=== PATIENT | female | born 1970 | race American Indian/Alaskan Native ===

== ENCOUNTER 2021-09-17 22:36 | Inpatient (IN) | payer MEDICAID ==
[~2021-09-17] VITALS: Ht 165.1 cm; Wt 62.0 kg
[~2021-09-17 22:36] MED LIST: ACET1TAB12 PO; CYCL-1 PO
[2021-09-17 23:24] LABS: BASOPHILS % (AUTO) 0.4 % (0-1); EOSINOPHILS # (AUTO) 0.1 X10'3 (0-0.9); EOSINOPHILS % (AUTO) 0.6 % (0-6); HEMOGLOBIN 10.9 g/dl (12.0-16.0); LYMPHOCYTES # (AUTO) 1.1 X10'3 (1.1-4.8); LYMPHOCYTES % (AUTO) 10.3 % (21-51); MEAN CORPUSCULAR HEMOGLOBIN 26.7 PG (27.0-31.0); MEAN CORPUSCULAR HGB CONC 32.2 g/dL (33.0-36.5); MEAN PLATELET VOLUME 10.3 FL (7.4-10.4); MONOCYTES # (AUTO) 0.7 X10'3 (0-0.9); MONOCYTES % (AUTO) 6.4 % (2-12); NEUTROPHILS # (AUTO) 9.1 X10'3 (1.8-7.7); NEUTROPHILS % (AUTO) 82.3 % (42-75); PLATELET COUNT 177 X10'3 (140-440); RED CELL DISTRIBUTION WIDTH 15.6 % (11.5-14.5)
[2021-09-17] MEDS ORDERED: normal saline 1000ml 1,000 ML IV ONE (23:30)
[2021-09-17 23:43] LABS: ALANINE AMINOTRANSFERASE 25 U/L (12-78); ALBUMIN 3.7 G/DL (3.4-5.0); ALBUMIN/GLOBULIN RATIO 0.8 (1.1-1.5); ALKALINE PHOSPHATASE 106 IU/L (46-116); ANION GAP 8 (8-16); ASPARTATE AMINO TRANSFERASE 24 U/L (10-37); BILIRUBIN,DIRECT 0.2 MG/DL (0-0.3); BILIRUBIN,TOTAL 0.4 MG/DL (0.1-1.0); BLOOD UREA NITROGEN 16 MG/DL (7-18); BUN/CREATININE RATIO 11.1 (6.6-38.0); CALCIUM 9.2 MG/DL (8.5-10.1); CHLORIDE 105 MMOL/L (99-107); CREATININE 1.44 MG/DL (0.40-0.90); GLUCOSE 151 MG/DL (70-104); LIPASE 109 U/L (73-393); SODIUM 139 MMOL/L (135-145); TOTAL CARBON DIOXIDE 25.7 MMOL/L (24-32); TOTAL PROTEIN 8.3 G/DL (6.4-8.2); eGFR 38 ML/MIN
[2021-09-18] MEDS ORDERED: iohexol 300mg/ml 100ml inj. ONE ×3 (00:11→17:43)
[2021-09-18] MEDS ORDERED: potassium Cl 20 mEq SR tablet PO STA (00:39)
[2021-09-18 01:19] LABS: APTT 23 SECONDS (22-32)
[2021-09-18 02:11] LABS: CLARITY,URINE SLIGHTLY CLOUDY (Clear); COLOR,URINE YELLOW (Yellow); GLUCOSE, URINE NEGATIVE (Neg); KETONES,URINE NEGATIVE (Neg); LEUKOCYTE ESTERASE ,URINE NEGATIVE (Neg); NITRITES, URINE NEGATIVE (Neg); OCCULT BLOOD,URINE NEGATIVE (Neg); PROTEIN,URINE TRACE mg/dl (Neg); URINE HCG NEGATIVE (NEG); UROBILINOGEN,URINE 0.2 E.U/dL (0.2-1.0)
[2021-09-18 02:14] LABS: UA COLLECTION TYPE CLN CATCH MIDSTREAM
[2021-09-18 02:19] LABS: BACTERIA,URINE NONE SEEN /HPF (Neg); HYALINE CASTS 0-3 /LPF (NEGATIVE); SQUAMOUS EPITHELIAL CELL,UR FEW /LPF (FEW); TRANSITIONAL EPI CELLS,URINE FEW /HPF
[2021-09-18 02:20] LABS: RBC,URINE 0-2 /HPF (0-2); WBC,URINE 0-4 /HPF (0-4)
[2021-09-18] MEDS ORDERED: LIDOcaine 1% 30ml preserv. free vial ONE (02:33)
[2021-09-18] MEDS ORDERED: midazolam 1 mg/ML 2ml injection ONE (02:33)
[2021-09-18] MEDS ORDERED: fentaNYL/PF 50MCG/1 ML 2ML syringe ONE (02:33)
[2021-09-18] MEDS ORDERED: heparin 1,000 UNITS/NS 500ml 500 ML ONE (02:34)
[2021-09-18] MEDS ORDERED: ondansetron/PF 4mg/2ml inj ONE (03:50)
--- NOTE | 2021-09-18 04:51 | NUR ---
PT BACK FROM [facility] SUITE, TO LIE FLAT FOR 6 HOURS, UNTIL 1030. NO ACTIVE BLEEDING FOUND, PER REPORT FROM [facility] RN. PT DROWSY, RIGHT GROIN DRESSING IS DRY AND INTACT.
--- NOTE | 2021-09-18 06:30 | NUR ---
first contact with pt. found supine in bed s/p stent placement. will be supine until 1030. pt denies pain, connected to all monitors. nad.
[2021-09-18] MEDS ORDERED: ondansetron/PF 4mg/2ml inj IV PRN (10:05)
[2021-09-18] MEDS ORDERED: LIDOcaine 2% 10ml TOPICAL JELLY (Urojet) TP ONE (10:05)
[2021-09-18] MEDS ORDERED: potassium Cl 20 mEq SR tablet PO PRN (10:05)
[2021-09-18] MEDS ORDERED: magnesium hydroxide 30ml (MOM) UD suspension PO PRN (10:05)
[2021-09-18] MEDS ORDERED: acetaminophen 325mg tablet PO PRN ×2 (10:05)
[2021-09-18] MEDS ORDERED: morphine 4 MG/ML inj SYRINge IV PRN (10:05)
[2021-09-18] MEDS: morphine 2 MG/ML inj. syringe IV PRN ×2 (10:47→19:30)
[2021-09-18] MEDS: normal saline 1000ml 1,000 ML IV SCH ×2 (10:48→19:31)
--- NOTE | 2021-09-18 11:00 | NUR ---
DR BLAS CALLED REGARDING PT'S ICU STATUS, PT WAS BEEN DOWN GRADED TO PCU, NURSING SUPP NOTIFIED
[2021-09-18 12:51] LABS: BASOPHILS % (AUTO) 0.7 % (0-1); EOSINOPHILS % (AUTO) 0.7 % (0-6); HEMATOCRIT 23.7 % (35.0-45.0); HEMOGLOBIN 7.8 g/dl (12.0-16.0); LYMPHOCYTES # (AUTO) 1.2 X10'3 (1.1-4.8); LYMPHOCYTES % (AUTO) 19.9 % (21-51); MEAN CORPUSCULAR HEMOGLOBIN 27.5 PG (27.0-31.0); MEAN CORPUSCULAR HGB CONC 32.7 g/dL (33.0-36.5); MEAN PLATELET VOLUME 10.1 FL (7.4-10.4); MONOCYTES # (AUTO) 0.6 X10'3 (0-0.9); MONOCYTES % (AUTO) 10.5 % (2-12); NEUTROPHILS # (AUTO) 4.2 X10'3 (1.8-7.7); NEUTROPHILS % (AUTO) 68.2 % (42-75); PLATELET COUNT 111 X10'3 (140-440); RED BLOOD COUNT 2.83 X10'6 (4.20-5.60); RED CELL DISTRIBUTION WIDTH 15.8 % (11.5-14.5); WHITE BLOOD COUNT 6.2 X10'3 (4.5-11.0)
[2021-09-18] MEDS ORDERED: NO HOME MEDS (13:35)
--- NOTE | 2021-09-18 15:26 | NUR ---
telephone report to sparkle porter.
[2021-09-18 15:34] LABS: HEMATOCRIT 23.9 % (35.0-45.0); HEMOGLOBIN 7.8 g/dl (12.0-16.0); MEAN CORPUSCULAR HEMOGLOBIN 27.4 PG (27.0-31.0); MEAN CORPUSCULAR HGB CONC 32.6 g/dL (33.0-36.5); MEAN PLATELET VOLUME 9.1 FL (7.4-10.4); PLATELET COUNT 104 X10'3 (140-440); RED BLOOD COUNT 2.84 X10'6 (4.20-5.60); RED CELL DISTRIBUTION WIDTH 15.7 % (11.5-14.5); WHITE BLOOD COUNT 6.6 X10'3 (4.5-11.0)
[2021-09-18 15:40] VITALS: BP 161/74
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
[2021-09-18] MEDS ORDERED: COVID-19 VACC, MRNA(PFIZER)/PF--BNT162b2 syringe IMVAC ONE (17:30)
[2021-09-18 18:00] VITALS: BP 155/71
--- NOTE | 2021-09-18 18:15 | NUR ---
Problems reprioritized. Patient report given, questions answered & plan of care reviewed with GIL CARRASQUILLO.
--- NOTE | 2021-09-18 18:45 | NUR ---
Problems reprioritized. Patient report given, questions answered & plan of care reviewed with GIL CARRASQUILLO .
[2021-09-18 21:23] LABS: HEMATOCRIT 22.6 % (35.0-45.0); HEMOGLOBIN 7.2 g/dl (12.0-16.0); MEAN CORPUSCULAR HEMOGLOBIN 26.7 PG (27.0-31.0); MEAN CORPUSCULAR HGB CONC 32.1 g/dL (33.0-36.5); PLATELET COUNT 98 X10'3 (140-440); RED BLOOD COUNT 2.72 X10'6 (4.20-5.60); RED CELL DISTRIBUTION WIDTH 15.5 % (11.5-14.5); WHITE BLOOD COUNT 6.3 X10'3 (4.5-11.0)
[2021-09-19] VITALS (11 sets, daily range): BP systolic 116–167; BP diastolic 42–71
[2021-09-19 03:52] LABS: BASOPHILS % (AUTO) 0.9 % (0-1); EOSINOPHILS # (AUTO) 0.1 X10'3 (0-0.9); EOSINOPHILS % (AUTO) 1.8 % (0-6); HEMATOCRIT 23.1 % (35.0-45.0); HEMOGLOBIN 7.5 g/dl (12.0-16.0); LYMPHOCYTES # (AUTO) 1.2 X10'3 (1.1-4.8); LYMPHOCYTES % (AUTO) 22.4 % (21-51); MEAN CORPUSCULAR HEMOGLOBIN 27.1 PG (27.0-31.0); MEAN CORPUSCULAR HGB CONC 32.4 g/dL (33.0-36.5); MEAN CORPUSCULAR VOLUME 83.7 FL (78-98); MEAN PLATELET VOLUME 10.7 FL (7.4-10.4); MONOCYTES # (AUTO) 0.5 X10'3 (0-0.9); MONOCYTES % (AUTO) 8.5 % (2-12); NEUTROPHILS # (AUTO) 3.7 X10'3 (1.8-7.7); NEUTROPHILS % (AUTO) 66.4 % (42-75); PLATELET COUNT 95 X10'3 (140-440); RED BLOOD COUNT 2.77 X10'6 (4.20-5.60); RED CELL DISTRIBUTION WIDTH 15.3 % (11.5-14.5); WHITE BLOOD COUNT 5.5 X10'3 (4.5-11.0)
[2021-09-19 04:19] LABS: ALANINE AMINOTRANSFERASE 21 U/L (12-78); ALBUMIN 2.9 G/DL (3.4-5.0); ALKALINE PHOSPHATASE 88 IU/L (46-116); ANION GAP 9 (8-16); ASPARTATE AMINO TRANSFERASE 20 U/L (10-37); BILIRUBIN,TOTAL 0.5 MG/DL (0.1-1.0); BLOOD UREA NITROGEN 16 MG/DL (7-18); BUN/CREATININE RATIO 16.3 (6.6-38.0); CALCIUM 8.2 MG/DL (8.5-10.1); CHLORIDE 109 MMOL/L (99-107); CREATININE 0.98 MG/DL (0.40-0.90); GLUCOSE 73 MG/DL (70-104); MAGNESIUM 1.7 MG/DL (1.5-2.4); POTASSIUM 3.6 MMOL/L (3.5-5.1); SODIUM 142 MMOL/L (135-145); TOTAL PROTEIN 5.8 G/DL (6.4-8.2); eGFR 60 ML/MIN
[2021-09-19 04:52] LABS: LARGE PLATELETS FEW; PLATELET ESTIMATE DECREASED
[2021-09-19] MEDS: normal saline 1000ml 1,000 ML IV SCH ×2 (06:20→19:58)
[2021-09-19] MEDS: K and/or MAG REPLACEMENT MC SCH (08:00)
[2021-09-19 09:53] LABS: HEMATOCRIT 24.5 % (35.0-45.0); MEAN CORPUSCULAR HEMOGLOBIN 27.3 PG (27.0-31.0); MEAN CORPUSCULAR HGB CONC 32.5 g/dL (33.0-36.5); MEAN PLATELET VOLUME 9.4 FL (7.4-10.4); PLATELET COUNT 90 X10'3 (140-440); RED BLOOD COUNT 2.92 X10'6 (4.20-5.60); RED CELL DISTRIBUTION WIDTH 15.5 % (11.5-14.5); WHITE BLOOD COUNT 6.2 X10'3 (4.5-11.0)
--- NOTE | 2021-09-19 10:36 | NUR ---
Malnutrition Consult: Noted pt stated wt loss of 24-33 lbs per RN malnutrition screen. Pt scaled wt of 52.27 kg appropriate for height; no hx of wt loss in EMR. Current clear liquid diet, pending PO trends. Pt WD/WN per MD note, w/ general/normal strength, and no edema noted. Pt does not meet minimum criteria for malnutrition at this time. Will continue to monitor. Addendum: 09/19/21 at 1037 by Amador De La Garza - Paula Floyd RD Amended: Links added. Addendum: 09/19/21 at [address] I have reviewed assessment by environmental engineering intern
--- NOTE | 2021-09-19 11:02 | NUR ---
PAGER ID: [phone] MESSAGE: [id number] Nathalia Wilkerson- Patient is in and out of accelerated junctional rhythm. Vika [phone]
--- NOTE | 2021-09-19 11:23 | NUR ---
PAGER ID: [phone] MESSAGE: [id number] Nathalia Wilkerson- Patient C/O sudden increase in abdominal pain. Vika [phone] Addendum: 09/19/21 at 1139 by Vika Redd RN Dr. Aldana called back. Order placed for CT abdomen
[2021-09-19] MEDS: morphine 2 MG/ML inj. syringe IV PRN ×2 (11:28→20:36)
[2021-09-19 15:42] LABS: BASOPHILS % (AUTO) 0.2 % (0-1); EOSINOPHILS % (AUTO) 0.1 % (0-6); HEMATOCRIT 24.8 % (35.0-45.0); HEMOGLOBIN 8.3 g/dl (12.0-16.0); LYMPHOCYTES # (AUTO) 0.1 X10'3 (1.1-4.8); LYMPHOCYTES % (AUTO) 2.3 % (21-51); MEAN CORPUSCULAR HEMOGLOBIN 27.7 PG (27.0-31.0); MEAN CORPUSCULAR HGB CONC 33.3 g/dL (33.0-36.5); MEAN CORPUSCULAR VOLUME 83.3 FL (78-98); MEAN PLATELET VOLUME 10.2 FL (7.4-10.4); MONOCYTES # (AUTO) 0.1 X10'3 (0-0.9); MONOCYTES % (AUTO) 0.9 % (2-12); NEUTROPHILS # (AUTO) 6.2 X10'3 (1.8-7.7); NEUTROPHILS % (AUTO) 96.5 % (42-75); PLATELET COUNT 67 X10'3 (140-440); RED BLOOD COUNT 2.98 X10'6 (4.20-5.60); RED CELL DISTRIBUTION WIDTH 15.1 % (11.5-14.5); WHITE BLOOD COUNT 6.4 X10'3 (4.5-11.0)
[2021-09-19] MEDS ORDERED: COVID-19 VACC, MRNA(PFIZER)/PF--BNT162b2 syringe IMVAC ONE (15:50)
[2021-09-19] MEDS ORDERED: FLU VACC QS2021-22(6MOS UP)/PF 60 MCG/0.5 ML SYRINGE IM ONE (17:25)
--- NOTE | 2021-09-19 18:00 | NUR ---
Problems reprioritized. Patient report given, questions answered & plan of care reviewed with Evie RN.
[2021-09-19 19:27] LABS: PLATELET ESTIMATE DECREASED; TOTAL CELLS COUNTED 100
[2021-09-19 21:02] LABS: HEMATOCRIT 22.9 % (35.0-45.0); HEMOGLOBIN 7.5 g/dl (12.0-16.0); MEAN CORPUSCULAR HEMOGLOBIN 26.7 PG (27.0-31.0); MEAN CORPUSCULAR HGB CONC 32.7 g/dL (33.0-36.5); MEAN CORPUSCULAR VOLUME 81.9 FL (78-98); MEAN PLATELET VOLUME 9.5 FL (7.4-10.4); PLATELET COUNT 76 X10'3 (140-440); RED CELL DISTRIBUTION WIDTH 14.9 % (11.5-14.5); WHITE BLOOD COUNT 17.3 X10'3 (4.5-11.0)
[2021-09-20] VITALS (25 sets, daily range): BP systolic 106–204; BP diastolic 61–104
[2021-09-20] MEDS: diatr meglu/diatrizoate 30ml oral sol.-(3 dose) bottle PO SCH ×3 (00:15→09:17)
[2021-09-20] MEDS: morphine 2 MG/ML inj. syringe IV PRN (00:57)
[2021-09-20 06:33] LABS: MEAN CORPUSCULAR HGB CONC 32.6 g/dL (33.0-36.5); MEAN CORPUSCULAR VOLUME 82.8 FL (78-98); MEAN PLATELET VOLUME 10.7 FL (7.4-10.4); PLATELET COUNT 77 X10'3 (140-440); RED BLOOD COUNT 2.52 X10'6 (4.20-5.60); RED CELL DISTRIBUTION WIDTH 15.2 % (11.5-14.5)
[2021-09-20 06:46] LABS: MAGNESIUM 1.4 MG/DL (1.5-2.4); POTASSIUM 3.4 MMOL/L (3.5-5.1)
[2021-09-20 06:48] LABS: HEMATOCRIT 20.8 % (35.0-45.0); HEMOGLOBIN 6.8 g/dl (12.0-16.0)
--- NOTE | 2021-09-20 07:07 | NUR ---
Page to Dr. Stovall Message: [id number] Michael- H&H 6.8. Vika [phone]
[2021-09-20] MEDS ORDERED: iohexol 300mg/ml 100ml inj. ONE (07:29)
[2021-09-20] MEDS: K and/or MAG REPLACEMENT MC SCH (08:00)
[2021-09-20] MEDS: normal saline 1000ml 1,000 ML IV SCH ×2 (09:00→20:01)
--- NOTE | 2021-09-20 09:23 | NUR ---
Page to Dr. Stovall Message: [id number] Bonnie Wilkerson&Cydney is 6.8 / 20.8. Vika [phone] Addendum: 09/20/21 at 0993 by Vika Redd RN Order placed for 1 unit PRBC
[2021-09-20 09:27] LABS: MEAN CORPUSCULAR HEMOGLOBIN 26.8 PG (27.0-31.0); MEAN CORPUSCULAR HGB CONC 32.4 g/dL (33.0-36.5); MEAN CORPUSCULAR VOLUME 82.7 FL (78-98); MEAN PLATELET VOLUME 9.6 FL (7.4-10.4); PLATELET COUNT 70 X10'3 (140-440); RED BLOOD COUNT 2.52 X10'6 (4.20-5.60); RED CELL DISTRIBUTION WIDTH 15.3 % (11.5-14.5); WHITE BLOOD COUNT 12.2 X10'3 (4.5-11.0)
[2021-09-20 09:35] LABS: HEMATOCRIT 20.8 % (35.0-45.0); HEMOGLOBIN 6.8 g/dl (12.0-16.0)
--- NOTE | 2021-09-20 11:27 | NUR ---
Message: [id number] KELLEY. [facility] CALLED. REPORT IS IN THE COMPUTER. THEY ARE VERY CONCERNED WITH THE FINDINGS. LEIGH MORALES
[2021-09-20] MEDS ORDERED: heparin 10,000 units/1 ML INJ ONE (12:39)
[2021-09-20] MEDS ORDERED: ceFOXitin 2GM-NS 100mL ADDvant 100 ML IV ONE (12:45)
[2021-09-20] MEDS ORDERED: fentaNYL/PF 50MCG/1 ML 2ML syringe ONE (12:48)
[2021-09-20] MEDS ORDERED: midazolam 1 mg/ML 2ml injection ONE (12:49)
--- NOTE | 2021-09-20 12:51 | NUR ---
Gave report to air launch weapons technician Terry
[2021-09-20] MEDS ORDERED: NORepinephrine 8 MG in NS 250 ML BAG (32 mcg/ml) IV ONE (12:52)
[2021-09-20] MEDS ORDERED: albumin (Human) 5% 250ml BOTTLE IV ONE (12:52)
[2021-09-20] MEDS ORDERED: sevoflurane 250ml liquid IH ONE (12:52)
[2021-09-20] MEDS ORDERED: famotidine/PF 10 mg/ml inj IV ONE (12:59)
[2021-09-20] MEDS ORDERED: rocuronium 10mg/ml inj IV ONE ×2 (13:28)
[2021-09-20] MEDS ORDERED: propofol inj 20 ML IV ONE (13:28)
[2021-09-20] MEDS ORDERED: LIDOcaine 2% (20mg/ml) 5ml vial ONE (13:28)
[2021-09-20] MEDS ORDERED: LIDOcaine 1%/PF 5ML 10 MG/ML VIAL ONE (13:28)
[2021-09-20] MEDS ORDERED: ceFOXitin 1000 MG inj ONE ×2 (13:37)
[2021-09-20] MEDS ORDERED: fentaNYL/PF 50MCG/1 ML 2ML syringe IV PRN (14:00)
[2021-09-20] MEDS ORDERED: midazolam 1 mg/ML 2ml injection IV ONE (14:00)
[2021-09-20] MEDS ORDERED: midazolam 100mg in NS 100ml 100 ML IV PRN (14:00)
[2021-09-20] MEDS ORDERED: fentaNYL /PF 50mcg/ml 5ml ampule ONE (14:21)
[2021-09-20] MEDS ORDERED: ondansetron/PF 4mg/2ml inj ONE (15:00)
[2021-09-20] MEDS ORDERED: dexamethasone sod phosphate 4mg/ml inj. ONE (15:00)
--- NOTE | 2021-09-20 15:24 | NUR ---
Received from OR via BED ON VENT, BAGGED BY DR STAHL, and report given BY DR STAHL AND LUMBER PRESS OPERATOR. PT SEDATED, RT PLACED ON VENT. MIDLINE ABDOMEN W/ISLAND DRSG INTACT, SMALL AMT OF BLOODY DRAINAGE NOTED. STEPHANIE TO BULB SUCTION, SMALL OF SANGUINOUS DRAINAGE IN BULB. EMERY CATHETER TO GRAVITY DRAINAGE, RIGHT NARE NGT TO LCS W/BROWN/SEROUS DRAINAGE. Addendum: 09/20/21 at 1720 by Jaki Singh RN Amended: Links added.
[2021-09-20] MEDS ORDERED: hydrALAZINE 20mg/ml inj. IV PRN (15:30)
[2021-09-20] MEDS ORDERED: labetalol 20mg/4ml (5mg/ml) syringe IV ONE (15:44)
[2021-09-20] MEDS: labetalol 5mg/ml 20ml inj. IV PRN ×2 (15:46→16:02)
--- NOTE | 2021-09-20 15:46 | NUR ---
Problems reprioritized. Patient report given, questions answered & plan of care reviewed with Ava CARRASQUILLO.
[2021-09-20 16:02] LABS: ABG OXYGEN SATURATION 99.4 % (94-97); ABG PO2 (T) 382.4 mmHg (75.0-100.0); FCOHb 0.3 % (0.0-3.9); FMetHb 0.4 % (0.0-1.5); FO2Hb 98.7 % (94-97); RESPIRATORY RATE 12 b/min; TIDAL VOLUME 450 mL; TOTAL HEMOGLOBIN 9.9 G/dl (12.0-16.0)
[2021-09-20] MEDS: FENTANYL-0.9 % NACL/PF 100 ML IV PRN (16:06)
[2021-09-20 16:13] LABS: HEMATOCRIT 28.4 % (35.0-45.0); HEMOGLOBIN 9.3 g/dl (12.0-16.0); MEAN CORPUSCULAR HEMOGLOBIN 27.5 PG (27.0-31.0); MEAN CORPUSCULAR HGB CONC 32.9 g/dL (33.0-36.5); MEAN CORPUSCULAR VOLUME 83.7 FL (78-98); MEAN PLATELET VOLUME 10.1 FL (7.4-10.4); PLATELET COUNT 84 X10'3 (140-440); RED BLOOD COUNT 3.39 X10'6 (4.20-5.60); WHITE BLOOD COUNT 11.1 X10'3 (4.5-11.0)
[2021-09-20] MEDS ORDERED: haemoph B poly conj-tet tox/PF 10mcg/0.5ml vial IMVAC ONE (16:20)
[2021-09-20] MEDS ORDERED: [UNRECOGNIZED DRUG - OTHER] IMVAC ONE (16:20)
[2021-09-20] MEDS ORDERED: pneumococcal 23-VAL P-sac vacc 25 mcg/0.5ml vial IMVAC ONE (16:20)
--- NOTE | 2021-09-20 16:34 | NUR ---
DR OKEEFE IN TO SEE PT, UPDATED, ORDERS RECEIVED. DR ELENA IN TO SEE PT. PT RECOVERED IN ICU. PT OPENS EYES TO NAME AND LIGHT TOUCH AND IS VERY ANXIOUS. WHEN LEFT ALONE, SHE RESTS AND APPEARS COMFORTABLE. BP IMPROVING AFTER 2, 5 MG DOSES OF LABETALOL. REPORT TO RECEIVING FOREIGN HERNANDEZ. Addendum: 09/20/21 at 1727 by Jaki Singh RN Amended: Links added.
[2021-09-20] MEDS: piperacillin/tazo 3.375gm/50ml 50 ML IV SCH (19:13)
[2021-09-20 21:21] LABS: BASOPHILS % (AUTO) 0.1 % (0-1); EOSINOPHILS % (AUTO) 0.2 % (0-6); HEMATOCRIT 31.6 % (35.0-45.0); HEMOGLOBIN 10.7 g/dl (12.0-16.0); LYMPHOCYTES # (AUTO) 0.1 X10'3 (1.1-4.8); MEAN CORPUSCULAR HGB CONC 33.9 g/dL (33.0-36.5); MEAN PLATELET VOLUME 8.5 FL (7.4-10.4); MONOCYTES # (AUTO) 0.6 X10'3 (0-0.9); NEUTROPHILS % (AUTO) 93.1 % (42-75); RED CELL DISTRIBUTION WIDTH 14.9 % (11.5-14.5)
[2021-09-20 21:23] LABS: LYMPHOCYTES % (AUTO) 1.2 % (21-51); MEAN CORPUSCULAR HEMOGLOBIN 29.4 PG (27.0-31.0); MEAN CORPUSCULAR VOLUME 86.6 FL (78-98); MONOCYTES % (AUTO) 5.4 % (2-12); NEUTROPHILS # (AUTO) 9.7 X10'3 (1.8-7.7); RED BLOOD COUNT 3.65 X10'6 (4.20-5.60); WHITE BLOOD COUNT 10.4 X10'3 (4.5-11.0)
--- NOTE | 2021-09-20 21:25 | NUR ---
Dr. Samson at bedside. Pt bleeding around STEPHANIE drain. Redressed. Reported critical platelets and Magnesium. Received order to transfuse platelets and replace mag.
[2021-09-20 21:41] LABS: PLATELET COUNT 47 X10'3 (140-440)
[2021-09-20 21:44] LABS: ALANINE AMINOTRANSFERASE 20 U/L (12-78); ALBUMIN 2.5 G/DL (3.4-5.0); ALKALINE PHOSPHATASE 74 IU/L (46-116); ANION GAP 11 (8-16); ASPARTATE AMINO TRANSFERASE 29 U/L (10-37); BILIRUBIN,TOTAL 0.6 MG/DL (0.1-1.0); BLOOD UREA NITROGEN 20 MG/DL (7-18); BUN/CREATININE RATIO 20.8 (6.6-38.0); CALCIUM 7.6 MG/DL (8.5-10.1); CHLORIDE 109 MMOL/L (99-107); CREATININE 0.96 MG/DL (0.40-0.90); GLUCOSE 102 MG/DL (70-104); PHOSPHORUS 4.4 MG/DL (2.3-4.5); POTASSIUM 3.8 MMOL/L (3.5-5.1); SODIUM 139 MMOL/L (135-145); TOTAL CARBON DIOXIDE 18.8 MMOL/L (24-32); eGFR 61 ML/MIN
[2021-09-21] VITALS (36 sets, daily range): BP systolic 128–178; BP diastolic 60–84
[2021-09-21] MEDS ORDERED: magnesium 2GM in 50ml NS 50 ML IV PRN (00:20)
[2021-09-21] MEDS ORDERED: magnesium 4gm in 100ml NS 100 ML IV PRN (00:20)
[2021-09-21] MEDS: FENTANYL-0.9 % NACL/PF 100 ML IV PRN (00:34)
[2021-09-21] MEDS: piperacillin/tazo 3.375gm/50ml 50 ML IV SCH ×4 (01:20→23:07)
[2021-09-21 04:01] LABS: BASOPHILS % (AUTO) 0.1 % (0-1); EOSINOPHILS % (AUTO) 0.3 % (0-6); HEMATOCRIT 23.4 % (35.0-45.0); HEMOGLOBIN 7.7 g/dl (12.0-16.0); LYMPHOCYTES # (AUTO) 0.2 X10'3 (1.1-4.8); LYMPHOCYTES % (AUTO) 1.5 % (21-51); MEAN CORPUSCULAR HEMOGLOBIN 27.5 PG (27.0-31.0); MEAN CORPUSCULAR HGB CONC 32.9 g/dL (33.0-36.5); MEAN CORPUSCULAR VOLUME 83.6 FL (78-98); MEAN PLATELET VOLUME 9.9 FL (7.4-10.4); MONOCYTES # (AUTO) 0.6 X10'3 (0-0.9); MONOCYTES % (AUTO) 4.7 % (2-12); NEUTROPHILS # (AUTO) 12.6 X10'3 (1.8-7.7); NEUTROPHILS % (AUTO) 93.4 % (42-75); PLATELET COUNT 154 X10'3 (140-440); RED BLOOD COUNT 2.79 X10'6 (4.20-5.60); RED CELL DISTRIBUTION WIDTH 14.9 % (11.5-14.5); WHITE BLOOD COUNT 13.5 X10'3 (4.5-11.0)
[2021-09-21 04:06] LABS: MAGNESIUM 2.3 MG/DL (1.5-2.4); POTASSIUM 3.9 MMOL/L (3.5-5.1)
[2021-09-21 04:28] LABS: ABG BASE EXCESS -5.4 mmol/L (-2.0-2.0); ABG HCO3 19.5 mmol/L (22.0-26.0); ABG OXYGEN SATURATION 98.3 % (94-97); ABG PCO2 (T) 34.8 mmHg (32.0-45.0); ABG PO2 (T) 130.6 mmHg (75.0-100.0); FCOHb 0.3 % (0.0-3.9); FMetHb 0.4 % (0.0-1.5); FO2Hb 97.6 % (94-97); PATIENT TEMPERATURE 36.5; PEEP 5 cm H2O; RESPIRATORY RATE 12 b/min; TOTAL HEMOGLOBIN 8.3 G/dl (12.0-16.0)
[2021-09-21 04:56] LABS: ALANINE AMINOTRANSFERASE 20 U/L (12-78); ALBUMIN 2.4 G/DL (3.4-5.0); ALBUMIN/GLOBULIN RATIO 0.8 (1.1-1.5); ALKALINE PHOSPHATASE 66 IU/L (46-116); ANION GAP 15 (8-16); ASPARTATE AMINO TRANSFERASE 29 U/L (10-37); BILIRUBIN,TOTAL 0.6 MG/DL (0.1-1.0); BLOOD UREA NITROGEN 22 MG/DL (7-18); BUN/CREATININE RATIO 21.4 (6.6-38.0); CALCIUM 7.5 MG/DL (8.5-10.1); CHLORIDE 107 MMOL/L (99-107); CREATININE 1.03 MG/DL (0.40-0.90); GLUCOSE 108 MG/DL (70-104); SODIUM 140 MMOL/L (135-145); TOTAL CARBON DIOXIDE 18.4 MMOL/L (24-32); TOTAL PROTEIN 5.5 G/DL (6.4-8.2); eGFR 56 ML/MIN
--- NOTE | 2021-09-21 05:00 | NUR ---
Dr. Coleman rounded on tele. Received order for precedex. Made MD aware of drop in H&H.
[2021-09-21] MEDS: K and/or MAG REPLACEMENT MC SCH (08:00)
[2021-09-21] MEDS: pantoprazole 40MG/NS 100ML BAG 100 ML IV SCH (08:10)
[2021-09-21] MEDS: normal saline 1000ml 1,000 ML IV SCH (08:10)
[2021-09-21 08:17] LABS: BASOPHILS % (AUTO) 0.1 % (0-1); EOSINOPHILS % (AUTO) 0 % (0-6); HEMOGLOBIN 7.1 g/dl (12.0-16.0); LYMPHOCYTES # (AUTO) 0.3 X10'3 (1.1-4.8); LYMPHOCYTES % (AUTO) 2.5 % (21-51); MEAN CORPUSCULAR HEMOGLOBIN 27.2 PG (27.0-31.0); MEAN CORPUSCULAR HGB CONC 32.3 g/dL (33.0-36.5); MEAN CORPUSCULAR VOLUME 84.2 FL (78-98); MEAN PLATELET VOLUME 10.3 FL (7.4-10.4); MONOCYTES # (AUTO) 0.9 X10'3 (0-0.9); MONOCYTES % (AUTO) 6.9 % (2-12); NEUTROPHILS % (AUTO) 90.5 % (42-75); PLATELET COUNT 154 X10'3 (140-440); RED BLOOD COUNT 2.61 X10'6 (4.20-5.60); RED CELL DISTRIBUTION WIDTH 15.1 % (11.5-14.5); WHITE BLOOD COUNT 13.2 X10'3 (4.5-11.0)
[2021-09-21] MEDS ORDERED: ipratropium/albuterol 3ml nebule NEB PRN (10:40)
[2021-09-21] MEDS ORDERED: racepinephrine 11.25mg/0.5ml nebule NEB PRN (10:40)
[2021-09-21] MEDS ORDERED: naloxone 0.4 mg/ml inj IV PRN (10:40)
[2021-09-21] MEDS ORDERED: normal saline 1000ml 1,000 ML IV SCH (10:40)
[2021-09-21] MEDS: mineral oil/petrolatum ophthal oint EACHEYE SCH ×2 (12:57→18:47)
[2021-09-21 14:05] LABS: BASOPHILS % (AUTO) 0.1 % (0-1); EOSINOPHILS % (AUTO) 0 % (0-6); LYMPHOCYTES # (AUTO) 0.5 X10'3 (1.1-4.8); LYMPHOCYTES % (AUTO) 3.8 % (21-51); MEAN CORPUSCULAR HEMOGLOBIN 27.4 PG (27.0-31.0); MEAN CORPUSCULAR HGB CONC 32.4 g/dL (33.0-36.5); MEAN CORPUSCULAR VOLUME 84.7 FL (78-98); MEAN PLATELET VOLUME 10.2 FL (7.4-10.4); MONOCYTES # (AUTO) 1.1 X10'3 (0-0.9); MONOCYTES % (AUTO) 8.9 % (2-12); NEUTROPHILS % (AUTO) 87.2 % (42-75); PLATELET COUNT 162 X10'3 (140-440); RED BLOOD COUNT 2.49 X10'6 (4.20-5.60); RED CELL DISTRIBUTION WIDTH 15.1 % (11.5-14.5); WHITE BLOOD COUNT 12.7 X10'3 (4.5-11.0)
[2021-09-21 14:07] LABS: HEMATOCRIT 21.1 % (35.0-45.0); HEMOGLOBIN 6.8 g/dl (12.0-16.0)
--- NOTE | 2021-09-21 14:40 | NUR ---
Dr. Samson called with H/H results 6.8/21.1. BP elevated. Keep BP controlled and bleeding should slow down. Hydralazine order for BP control.
[2021-09-21] MEDS: HYDROmorph./NS 0.2 mg/ml CADD 100 ML IV SCH ×7 (14:55→22:59)
[2021-09-21] MEDS: ipratropium/albuterol 3ml nebule NEB SCH ×2 (15:00→20:23)
[2021-09-21] MEDS: hydrALAZINE 20mg/ml inj. IV PRN ×2 (15:10→21:14)
[2021-09-21] MEDS: dexmedetomidine/D5W 100mL 100 ML IV SCH (15:48)
[2021-09-21] MEDS: docusate sod 100mg capsule PO SCH (19:07)
[2021-09-21] MEDS: sennosides/docusate sodium tablet PO SCH (19:07)
[2021-09-21 20:04] LABS: BASOPHILS % (AUTO) 0.1 % (0-1); EOSINOPHILS % (AUTO) 0 % (0-6); LYMPHOCYTES # (AUTO) 0.5 X10'3 (1.1-4.8); LYMPHOCYTES % (AUTO) 4.2 % (21-51); MEAN CORPUSCULAR HEMOGLOBIN 27.4 PG (27.0-31.0); MEAN CORPUSCULAR HGB CONC 32.9 g/dL (33.0-36.5); MEAN CORPUSCULAR VOLUME 83.3 FL (78-98); MEAN PLATELET VOLUME 9.6 FL (7.4-10.4); MONOCYTES # (AUTO) 1.1 X10'3 (0-0.9); MONOCYTES % (AUTO) 8.9 % (2-12); NEUTROPHILS # (AUTO) 10.7 X10'3 (1.8-7.7); NEUTROPHILS % (AUTO) 86.8 % (42-75); PLATELET COUNT 170 X10'3 (140-440); RED BLOOD COUNT 2.51 X10'6 (4.20-5.60); RED CELL DISTRIBUTION WIDTH 14.9 % (11.5-14.5); WHITE BLOOD COUNT 12.3 X10'3 (4.5-11.0)
[2021-09-21 20:17] LABS: HEMATOCRIT 20.9 % (35.0-45.0); HEMOGLOBIN 6.9 g/dl (12.0-16.0)
[2021-09-22] VITALS (24 sets, daily range): BP systolic 127–198; BP diastolic 55–93
[2021-09-22] MEDS: dexmedetomidine/D5W 100mL 100 ML IV SCH ×2 (00:39→20:18)
[2021-09-22] MEDS: normal saline 1000ml 1,000 ML IV SCH ×2 (01:00→15:29)
[2021-09-22] MEDS: HYDROmorph./NS 0.2 mg/ml CADD 100 ML IV SCH ×9 (01:00→23:00)
[2021-09-22 01:32] LABS: BASOPHILS % (AUTO) 0.1 % (0-1); EOSINOPHILS % (AUTO) 0.1 % (0-6); HEMATOCRIT 26.9 % (35.0-45.0); HEMOGLOBIN 9.1 g/dl (12.0-16.0); LYMPHOCYTES # (AUTO) 0.4 X10'3 (1.1-4.8); LYMPHOCYTES % (AUTO) 3.3 % (21-51); MEAN CORPUSCULAR HEMOGLOBIN 28.4 PG (27.0-31.0); MEAN CORPUSCULAR HGB CONC 33.9 g/dL (33.0-36.5); MEAN CORPUSCULAR VOLUME 83.8 FL (78-98); MEAN PLATELET VOLUME 9.2 FL (7.4-10.4); MONOCYTES # (AUTO) 1.1 X10'3 (0-0.9); MONOCYTES % (AUTO) 7.9 % (2-12); NEUTROPHILS # (AUTO) 11.9 X10'3 (1.8-7.7); NEUTROPHILS % (AUTO) 88.6 % (42-75); PLATELET COUNT 178 X10'3 (140-440); RED BLOOD COUNT 3.21 X10'6 (4.20-5.60); RED CELL DISTRIBUTION WIDTH 15.6 % (11.5-14.5); WHITE BLOOD COUNT 13.4 X10'3 (4.5-11.0)
[2021-09-22] MEDS: mineral oil/petrolatum ophthal oint EACHEYE SCH ×4 (02:00→20:00)
[2021-09-22 02:41] LABS: ALANINE AMINOTRANSFERASE 25 U/L (12-78); ALBUMIN 2.7 G/DL (3.4-5.0); ALBUMIN/GLOBULIN RATIO 0.9 (1.1-1.5); ALKALINE PHOSPHATASE 68 IU/L (46-116); ANION GAP 10 (8-16); ASPARTATE AMINO TRANSFERASE 32 U/L (10-37); BILIRUBIN,TOTAL 0.5 MG/DL (0.1-1.0); BLOOD UREA NITROGEN 27 MG/DL (7-18); BUN/CREATININE RATIO 26.2 (6.6-38.0); CALCIUM 7.9 MG/DL (8.5-10.1); CHLORIDE 109 MMOL/L (99-107); CREATININE 1.03 MG/DL (0.40-0.90); GLUCOSE 105 MG/DL (70-104); MAGNESIUM 2.4 MG/DL (1.5-2.4); POTASSIUM 3.9 MMOL/L (3.5-5.1); SODIUM 140 MMOL/L (135-145); TOTAL PROTEIN 5.7 G/DL (6.4-8.2); eGFR 56 ML/MIN
[2021-09-22] MEDS: hydrALAZINE 20mg/ml inj. IV PRN ×4 (03:11→20:58)
[2021-09-22] MEDS: ipratropium/albuterol 3ml nebule NEB SCH ×4 (03:23→20:21)
--- NOTE | 2021-09-22 06:50 | NUR ---
Patient in room ICU 2045. I have received report from Sharyn Ware and had the opportunity to ask questions and assume patient care.
[2021-09-22] MEDS: sennosides/docusate sodium tablet PO SCH ×3 (08:00→20:47)
[2021-09-22] MEDS: pantoprazole 40MG/NS 100ML BAG 100 ML IV SCH (08:00)
[2021-09-22] MEDS: docusate sod 100mg capsule PO SCH ×3 (08:00→20:47)
[2021-09-22] MEDS: piperacillin/tazo 3.375gm/50ml 50 ML IV SCH ×2 (08:00→15:27)
--- NOTE | 2021-09-22 08:32 | NUR ---
Patient's b/p systolic 170's, MD Samson notified of next administration and okayed to give 1 hour early.
--- NOTE | 2021-09-22 09:35 | NUR ---
called for consistent a-line b/p reading of systolic above 170. MD plans to come and treat the patient.
[2021-09-22] MEDS: methylnaltrexone br 12mg/0.6ml inj***SubQ only SQ SCH (12:27)
--- NOTE | 2021-09-22 13:11 | NUR ---
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 Pt was intubated from 09/20- and is now extubated. Pt currently NPO, recommend advancing as tolerated to low fiber diet per MD discretion. LBM 09/17 receiving routine relistor and w/ colace and senna though held for NPO. Limited nutrition interventions at this time, will continue to monitor. Recs: 1. Advance as tolerated to Low Fiber diet per MD discretion 2. Monitor need for ONS 3. Bowel care per MD 4. Weekly wts Addendum: 09/22/21 at [address] Amended: Links added.
[2021-09-23] VITALS (19 sets, daily range): BP systolic 138–170; BP diastolic 65–86
[2021-09-23] MEDS: piperacillin/tazo 3.375gm/50ml 50 ML IV SCH (01:13)
[2021-09-23] MEDS: mineral oil/petrolatum ophthal oint EACHEYE SCH ×2 (02:00→08:00)
[2021-09-23] MEDS: HYDROmorph./NS 0.2 mg/ml CADD 100 ML IV SCH ×11 (03:00→23:00)
[2021-09-23] MEDS: ipratropium/albuterol 3ml nebule NEB SCH ×2 (03:04→09:19)
[2021-09-23 03:39] LABS: ALANINE AMINOTRANSFERASE 25 U/L (12-78); ALBUMIN 2.2 G/DL (3.4-5.0); ALBUMIN/GLOBULIN RATIO 0.8 (1.1-1.5); ALKALINE PHOSPHATASE 58 IU/L (46-116); ANION GAP 9 (8-16); ASPARTATE AMINO TRANSFERASE 28 U/L (10-37); BILIRUBIN,TOTAL 0.5 MG/DL (0.1-1.0); BLOOD UREA NITROGEN 17 MG/DL (7-18); BUN/CREATININE RATIO 24.3 (6.6-38.0); CALCIUM 7.9 MG/DL (8.5-10.1); CHLORIDE 110 MMOL/L (99-107); GLUCOSE 72 MG/DL (70-104); MAGNESIUM 1.6 MG/DL (1.5-2.4); POTASSIUM 3.3 MMOL/L (3.5-5.1); SODIUM 141 MMOL/L (135-145); TOTAL CARBON DIOXIDE 21.8 MMOL/L (24-32); TOTAL PROTEIN 4.9 G/DL (6.4-8.2); eGFR 88 ML/MIN
[2021-09-23] MEDS: normal saline 1000ml 1,000 ML IV SCH (04:23)
--- NOTE | 2021-09-23 05:34 | NUR ---
Pt continues to be in a moderate to severe amount of ABD pain even with the CAD pump at times. The STEPHANIE drain has a steady leak that requires 3-4 dressing changes per shift. There has not been a bowel movement yet but the patient is now passing gas.
--- NOTE | 2021-09-23 06:30 | NUR ---
Patient in room ICU 2045. I have received report from Josh CARRASQUILLO and had the opportunity to ask questions and assume patient care.
[2021-09-23] MEDS: docusate sodium 100mg/10ml UD cup PO SCH ×2 (07:22→20:00)
[2021-09-23] MEDS ORDERED: potassium CL 10mEq/100ml bag 100 ML IV PRN (07:25)
[2021-09-23] MEDS: sennosides/docusate sodium tablet PO SCH ×2 (08:00→20:00)
[2021-09-23] MEDS: ringers solution, lacted 1,000 ML IV SCH ×2 (08:59→14:40)
[2021-09-23] MEDS: pantoprazole 40MG/NS 100ML BAG 100 ML IV SCH (08:59)
[2021-09-23 09:22] LABS: BASOPHILS % (AUTO) 0.2 % (0-1); HEMOGLOBIN 7.8 g/dl (12.0-16.0); LYMPHOCYTES # (AUTO) 0.6 X10'3 (1.1-4.8); MEAN PLATELET VOLUME 8.6 FL (7.4-10.4); MONOCYTES % (AUTO) 8.9 % (2-12); RED BLOOD COUNT 2.78 X10'6 (4.20-5.60)
[2021-09-23 09:23] LABS: EOSINOPHILS % (AUTO) 0.2 % (0-6); HEMATOCRIT 23.6 % (35.0-45.0); LYMPHOCYTES % (AUTO) 5.3 % (21-51); MEAN CORPUSCULAR HEMOGLOBIN 28.1 PG (27.0-31.0); MEAN CORPUSCULAR HGB CONC 33.1 g/dL (33.0-36.5); MEAN CORPUSCULAR VOLUME 84.9 FL (78-98); MONOCYTES # (AUTO) 0.9 X10'3 (0-0.9); NEUTROPHILS % (AUTO) 85.4 % (42-75); PLATELET COUNT 189 X10'3 (140-440); RED CELL DISTRIBUTION WIDTH 15.9 % (11.5-14.5); WHITE BLOOD COUNT 10.6 X10'3 (4.5-11.0)
--- NOTE | 2021-09-23 09:39 | NUR ---
0300 and 0500 CADD Reassesment reassessment not done on previous shift
[2021-09-23] MEDS: potassium Cl 20mEq/100mL bag 100 ML IV PRN ×2 (10:34→10:38)
--- NOTE | 2021-09-23 11:31 | NUR ---
Called Jannet Goode [phone] spoke to Luz Maria RN to inform them that the patient was admitted over the weekend, Luz Maria stated that she was not an active patient with Dr. Eladio Sanderson that the patient will have to call registration upon discharge to get reactivated
[2021-09-23 12:59] LABS: ISTAT K 2.9 mmol/L (3.5-5.1)
[2021-09-23 13:00] LABS: ISTAT CREATININE 0.8 mg/dL (0.6-1.1); ISTAT IONIZED CALCIUM 1.17 mmol/L (1.03-1.32); POC BUN/CREATININE RATIO 17.5 (6.6-38.0)
[2021-09-23 13:01] LABS: ISTAT HGB 5.8 g/dl (12.0-16.0)
[2021-09-23] MEDS ORDERED: dextrose 50%-water 50ml dispensing syringe IV PRN (14:55)
[2021-09-23] MEDS ORDERED: dextrose ORAL solution 15 GM/59 ML bottle PO PRN ×2 (14:55)
[2021-09-23] MEDS ORDERED: glucagon, human recombinant 1mg kit SUBCUT PRN (14:55)
--- NOTE | 2021-09-23 14:55 | NUR ---
blood sugar 66, ordered hypoglycemic protocol per icu protocol tx bs will re -check
[2021-09-23] MEDS: dextrose 50%-water 50ml dispensing syringe IV PRN (15:07)
[2021-09-23] MEDS: dexmedetomidine/D5W 100mL 100 ML IV SCH (15:57)
[2021-09-23 16:27] LABS: NUCLEATED RED BLOOD CELLS 2 /100WBC (0-0); TOTAL CELLS COUNTED 100
[2021-09-23 16:28] LABS: PLATELET ESTIMATE NORMAL
[2021-09-23 16:29] LABS: HYPERSEGMENTED NEUTROPHILS FEW
[2021-09-23 16:30] LABS: HYPOCHROMASIA 1+; POLYCHROMASIA 1+
[2021-09-23 16:31] LABS: ANISOCYTOSIS FEW; ELLIPTOCYTES FEW
[2021-09-23 16:32] LABS: LARGE PLATELETS FEW; POIKILOCYTOSIS FEW
[2021-09-23 16:49] LABS: BASOPHILS % (AUTO) 0.3 % (0-1); EOSINOPHILS # (AUTO) 0.1 X10'3 (0-0.9); EOSINOPHILS % (AUTO) 0.6 % (0-6); HEMATOCRIT 23.4 % (35.0-45.0); HEMOGLOBIN 7.7 g/dl (12.0-16.0); LYMPHOCYTES # (AUTO) 0.7 X10'3 (1.1-4.8); LYMPHOCYTES % (AUTO) 7.3 % (21-51); MEAN CORPUSCULAR VOLUME 84.8 FL (78-98); MEAN PLATELET VOLUME 8.3 FL (7.4-10.4); MONOCYTES % (AUTO) 10.3 % (2-12); NEUTROPHILS # (AUTO) 8.3 X10'3 (1.8-7.7); NEUTROPHILS % (AUTO) 81.5 % (42-75); PLATELET COUNT 203 X10'3 (140-440); RED BLOOD COUNT 2.76 X10'6 (4.20-5.60); RED CELL DISTRIBUTION WIDTH 15.8 % (11.5-14.5); WHITE BLOOD COUNT 10.2 X10'3 (4.5-11.0)
--- NOTE | 2021-09-23 17:21 | NUR ---
called report to ACCE Haily Mackey
[2021-09-23] MEDS: hydrALAZINE 20mg/ml inj. IV PRN (23:45)
[2021-09-24] MEDS: HYDROmorph./NS 0.2 mg/ml CADD 100 ML IV SCH ×8 (01:00→23:00)
[2021-09-24 02:00] VITALS: BP 140/78
[2021-09-24 06:00] VITALS: BP 161/91
[2021-09-24 06:49] LABS: ALANINE AMINOTRANSFERASE 26 U/L (12-78); ALBUMIN 2.4 G/DL (3.4-5.0); ALBUMIN/GLOBULIN RATIO 0.7 (1.1-1.5); ANION GAP 11 (8-16); ASPARTATE AMINO TRANSFERASE 25 U/L (10-37); BILIRUBIN,TOTAL 0.7 MG/DL (0.1-1.0); BLOOD UREA NITROGEN 12 MG/DL (7-18); BUN/CREATININE RATIO 20.3 (6.6-38.0); CALCIUM 8.5 MG/DL (8.5-10.1); CHLORIDE 108 MMOL/L (99-107); CREATININE 0.59 MG/DL (0.40-0.90); GLUCOSE 72 MG/DL (70-104); POTASSIUM 3.5 MMOL/L (3.5-5.1); SODIUM 141 MMOL/L (135-145); TOTAL PROTEIN 5.7 G/DL (6.4-8.2); eGFR > 90 ML/MIN
[2021-09-24] MEDS: pantoprazole 40MG/NS 100ML BAG 100 ML IV SCH (08:33)
[2021-09-24] MEDS: sennosides/docusate sodium tablet PO SCH ×2 (08:37→20:00)
[2021-09-24] MEDS: docusate sodium 100mg/10ml UD cup PO SCH ×2 (08:46→20:00)
[2021-09-24] MEDS: dextrose 50%-water 50ml dispensing syringe IV PRN (09:58)
[2021-09-24] MEDS: methylnaltrexone br 12mg/0.6ml inj***SubQ only SQ SCH (10:34)
[2021-09-24] MEDS: hydrALAZINE 20mg/ml inj. IV PRN (10:43)
[2021-09-24 11:00] VITALS: BP 169/92
[2021-09-24] MEDS ORDERED: [UNRECOGNIZED DRUG - OTHER] IMVAC ONE (12:00)
[2021-09-24] MEDS ORDERED: haemoph B poly conj-tet tox/PF 10mcg/0.5ml vial IMVAC ONE (12:00)
[2021-09-24 12:15] VITALS: BP 147/48
--- NOTE | 2021-09-24 14:25 | NUR ---
Nutrition consult: Pt has been mostly NPO for 6 days. D/w RN recommendation to advance to Low fiber diet as tolerated, though diet advancement is up to Surgeon's discretion. Pt has NGT for suction though to be removed today per RN. Pt at high risk for developing malnutrition if diet cannot be advanced. Will continue to monitor. Addendum: 09/24/21 at [address] Amended: Links added.
[2021-09-24 15:00] VITALS: BP 176/85
--- NOTE | 2021-09-24 17:45 | NUR ---
Alert, Oriented, HRR Resp even and unlabored, O2 discontinued, O2 sat 98% rm air, Pt refused removal of BNC due to comfort measure, Abd inc, well approx, STEPHANIE drain intact draining serosanquainous drainaige,Stephanie drained emptied 190cc this shift. NGT 215cc of dark greenish colored emesis. Dietary consulted and spoke with regarding patient diet plans, @1515 Orders received per Surgeon to stop suction and allow pt to eat clear liquid diet. Pt ate strawberry jello and broth as she requested. tolerated well. denies any N/V after eating,blood glucose 72 this afternoon. Pt denies pain , states just uncomfortable, Reposititoned for comfort. encouraged use of Pain pump if needed.Will continue to monitor.
[2021-09-24 18:00] VITALS: BP 190/83
[2021-09-25] MEDS: HYDROmorph./NS 0.2 mg/ml CADD 100 ML IV SCH ×10 (01:00→23:00)
[2021-09-25 02:00] VITALS: BP 193/87
[2021-09-25 06:12] LABS: HEMATOCRIT 27.3 % (35.0-45.0); HEMOGLOBIN 9.2 g/dl (12.0-16.0); LYMPHOCYTES # (AUTO) 0.4 X10'3 (1.1-4.8); LYMPHOCYTES % (AUTO) 4.6 % (21-51); MEAN CORPUSCULAR HEMOGLOBIN 28.1 PG (27.0-31.0); MONOCYTES # (AUTO) 0.8 X10'3 (0-0.9); MONOCYTES % (AUTO) 8.1 % (2-12); NEUTROPHILS # (AUTO) 8.4 X10'3 (1.8-7.7); NEUTROPHILS % (AUTO) 86.7 % (42-75); PLATELET COUNT 277 X10'3 (140-440); WHITE BLOOD COUNT 9.7 X10'3 (4.5-11.0)
[2021-09-25 06:14] LABS: BASOPHILS % (AUTO) 0.2 % (0-1); EOSINOPHILS % (AUTO) 0.4 % (0-6); MEAN CORPUSCULAR HGB CONC 33.6 g/dL (33.0-36.5); MEAN CORPUSCULAR VOLUME 83.5 FL (78-98); MEAN PLATELET VOLUME 8.5 FL (7.4-10.4); RED BLOOD COUNT 3.26 X10'6 (4.20-5.60); RED CELL DISTRIBUTION WIDTH 15.5 % (11.5-14.5)
[2021-09-25 06:39] LABS: ALANINE AMINOTRANSFERASE 29 U/L (12-78); ALBUMIN 2.3 G/DL (3.4-5.0); ALBUMIN/GLOBULIN RATIO 0.7 (1.1-1.5); ANION GAP 6 (8-16); ASPARTATE AMINO TRANSFERASE 35 U/L (10-37); BILIRUBIN,TOTAL 0.8 MG/DL (0.1-1.0); BLOOD UREA NITROGEN 14 MG/DL (7-18); BUN/CREATININE RATIO 21.5 (6.6-38.0); CALCIUM 8.3 MG/DL (8.5-10.1); CHLORIDE 107 MMOL/L (99-107); CREATININE 0.65 MG/DL (0.40-0.90); GLUCOSE 100 MG/DL (70-104); POTASSIUM 3.3 MMOL/L (3.5-5.1); SODIUM 140 MMOL/L (135-145); TOTAL CARBON DIOXIDE 27.1 MMOL/L (24-32); TOTAL PROTEIN 5.6 G/DL (6.4-8.2); eGFR > 90 ML/MIN
--- NOTE | 2021-09-25 06:45 | NUR ---
Problems reprioritized. Patient report given, questions answered & plan of care reviewed with Lizzette.
[2021-09-25] MEDS ORDERED: FLU VACC QS2021-22(6MOS UP)/PF 60 MCG/0.5 ML SYRINGE IM ONE (08:00)
[2021-09-25] MEDS ORDERED: pneumococcal 23-VAL P-sac vacc 25 mcg/0.5ml vial IMVAC ONE (08:00)
[2021-09-25] MEDS: sennosides/docusate sodium tablet PO SCH ×2 (09:18→20:11)
[2021-09-25] MEDS: docusate sodium 100mg/10ml UD cup PO SCH ×2 (09:19→20:11)
[2021-09-25] MEDS: potassium Cl 20 mEq SR tablet PO PRN ×3 (09:19→20:12)
[2021-09-25] MEDS: pantoprazole 40MG/NS 100ML BAG 100 ML IV SCH (09:20)
[2021-09-25] MEDS: metoprolol tartrate 25mg tablet PO SCH ×2 (09:28→20:12)
[2021-09-25] MEDS ORDERED: normal saline 1000ml 1,000 ML IV SCH (13:35)
[2021-09-25 14:00] VITALS: BP 134/102
[2021-09-25 14:01] LABS: NUCLEATED RED BLOOD CELLS 1 /100WBC (0-0); TOTAL CELLS COUNTED 100
[2021-09-25 14:08] LABS: PLATELET ESTIMATE NORMAL
[2021-09-25 14:09] LABS: POLYCHROMASIA 1+
[2021-09-25 14:10] LABS: ANISOCYTOSIS FEW
[2021-09-25 14:11] LABS: ELLIPTOCYTES FEW; SCHISTOCYTES FEW
[2021-09-25 14:12] LABS: LARGE PLATELETS FEW
[2021-09-25] MEDS: normal saline 1000ml 1,000 ML IV SCH (15:53)
--- NOTE | 2021-09-25 17:02 | NUR ---
PAGER ID: [phone] MESSAGE: [phone]. Do we still need blood sugar checks? Minna CARRASQUILLO [phone]
--- NOTE | 2021-09-25 17:35 | NUR ---
1700 CADD pump settings? 6.5ml residual, 36 doses given/ 44 doses attempted, 7.20mg given.
--- NOTE | 2021-09-25 18:14 | NUR ---
Problems reprioritized. Patient report given, questions answered & plan of care reviewed with Faina CARRASQUILLO.
[2021-09-25 20:00] VITALS: BP 144/77
[2021-09-26] VITALS: BP 145/64
[2021-09-26] MEDS: HYDROmorph./NS 0.2 mg/ml CADD 100 ML IV SCH ×5 (01:11→09:00)
[2021-09-26] MEDS: CADD PCA waste documentation MC PRN ×2 (01:17→10:49)
[2021-09-26 04:52] LABS: BASOPHILS % (AUTO) 0.3 % (0-1); EOSINOPHILS # (AUTO) 0.2 X10'3 (0-0.9); HEMATOCRIT 26.2 % (35.0-45.0); HEMOGLOBIN 8.8 g/dl (12.0-16.0); MEAN CORPUSCULAR HEMOGLOBIN 28.2 PG (27.0-31.0); MEAN CORPUSCULAR HGB CONC 33.5 g/dL (33.0-36.5); NEUTROPHILS # (AUTO) 6.6 X10'3 (1.8-7.7); RED BLOOD COUNT 3.12 X10'6 (4.20-5.60); WHITE BLOOD COUNT 8.4 X10'3 (4.5-11.0)
[2021-09-26 04:53] LABS: LYMPHOCYTES # (AUTO) 0.6 X10'3 (1.1-4.8); LYMPHOCYTES % (AUTO) 7.4 % (21-51); MEAN CORPUSCULAR VOLUME 84.1 FL (78-98); MEAN PLATELET VOLUME 8.4 FL (7.4-10.4); NEUTROPHILS % (AUTO) 78.3 % (42-75); PLATELET COUNT 309 X10'3 (140-440); RED CELL DISTRIBUTION WIDTH 15.6 % (11.5-14.5)
--- NOTE | 2021-09-26 05:32 | NUR ---
FC out at 0530.Pt DTV at 1130 am.
[2021-09-26] MEDS: normal saline 1000ml 1,000 ML IV SCH ×2 (05:53→14:50)
--- NOTE | 2021-09-26 06:31 | NUR ---
Problems re-prioritized,report given and plan of care reviewed with Racquel CARRASQUILLO
[2021-09-26 06:39] LABS: ALANINE AMINOTRANSFERASE 30 U/L (12-78); ALBUMIN 2.1 G/DL (3.4-5.0); ALBUMIN/GLOBULIN RATIO 0.7 (1.1-1.5); ANION GAP 4 (8-16); ASPARTATE AMINO TRANSFERASE 29 U/L (10-37); BILIRUBIN,TOTAL 0.7 MG/DL (0.1-1.0); BLOOD UREA NITROGEN 12 MG/DL (7-18); BUN/CREATININE RATIO 17.6 (6.6-38.0); CHLORIDE 108 MMOL/L (99-107); CREATININE 0.68 MG/DL (0.40-0.90); GLUCOSE 86 MG/DL (70-104); POTASSIUM 3.7 MMOL/L (3.5-5.1); SODIUM 139 MMOL/L (135-145); TOTAL CARBON DIOXIDE 27.5 MMOL/L (24-32); TOTAL PROTEIN 5.1 G/DL (6.4-8.2); eGFR > 90 ML/MIN
--- NOTE | 2021-09-26 06:59 | NUR ---
Patient in room MAYA 345. I have received report from Faina CARRASQUILLO Traveler and had the opportunity to ask questions and assume patient care.
[2021-09-26 07:00] VITALS: BP 157/90
[2021-09-26 07:04] LABS: ALKALINE PHOSPHATASE 70 IU/L (46-116)
[2021-09-26] MEDS: docusate sodium 100mg/10ml UD cup PO SCH (08:00)
[2021-09-26] MEDS: pantoprazole 40MG/NS 100ML BAG 100 ML IV SCH (09:19)
[2021-09-26] MEDS: metoprolol tartrate 25mg tablet PO SCH (09:20)
[2021-09-26] MEDS: sennosides/docusate sodium tablet PO SCH (09:20)
[2021-09-26] MEDS ORDERED: docusate sod 100mg capsule PO SCH (09:29)
[2021-09-26 10:02] LABS: HYPOCHROMASIA 1+; NUCLEATED RED BLOOD CELLS 1 /100WBC (0-0); PLATELET ESTIMATE NORMAL; POLYCHROMASIA 1+; TOTAL CELLS COUNTED 100
[2021-09-26 10:03] LABS: ELLIPTOCYTES 1+; SCHISTOCYTES FEW
[2021-09-26 10:04] LABS: ANISOCYTOSIS FEW; GIANT PLATELET FEW; LARGE PLATELETS FEW
[2021-09-26] MEDS ORDERED: HYDROcodone/acetaminophen 10/325mg tab PO PRN (10:10)
[2021-09-26] MEDS ORDERED: HYDROcodone/acetaminophen 5mg/325mg tablet PO PRN (10:10)
[2021-09-26] MEDS ORDERED: morphine 2 MG/ML inj. syringe IV PRN (10:10)
[2021-09-26 11:30] VITALS: BP 143/93
--- NOTE | 2021-09-26 11:45 | NUR ---
Problems reprioritized. Patient report given to student nurse, questions answered & plan of care reviewed with .
--- NOTE | 2021-09-26 15:06 | NUR ---
Student documentation: I have reviewed and agree with all interventions, assessments performed and documented by Mary Student Nurse.
[2021-09-26] MEDS ORDERED: HYDR-3972 PO (17:32)
[2021-09-26] MEDS ORDERED: pneumococcal 23-VAL P-sac vacc 25 mcg/0.5ml vial IMVAC ONE (17:40)
[2021-09-26] MEDS ORDERED: [UNRECOGNIZED DRUG - OTHER] IMVAC ONE (17:40)
[2021-09-26] MEDS ORDERED: FLU VACC QS2021-22(6MOS UP)/PF 60 MCG/0.5 ML SYRINGE IM ONE (18:00)
--- NOTE | 2021-09-26 18:16 | NUR ---
Problems reprioritized. Patient report given, questions answered & plan of care reviewed with Faina CARRASQUILLO traveler.
--- NOTE | 2021-09-26 18:23 | NUR ---
Patient in room MAYA 345 A. I have received report from Racquel CARRASQUILLO and had the opportunity to ask questions and assume patient care.
--- NOTE | 2021-09-26 19:10 | NUR ---
Pt approached by this contract technical writer with discharge instructions and vaccinations that were required before discharge .Pt is non compliant and starts pacing in room throwing stuff all over and cursing at staff stating" You can not keep me here and I m not taking any more vaccines.I already got them when I came in". Patient very upset and not easily directable.Staff tried to calm pt down but she continued cursing using the "F" word as she gathered belongings and dressed up.Pt was informed by contract technical writer that the IJ line to the right of neck needed to be taken out before she could leave .Meanwhile, the Pt's surgeon happened to be on the unit and managed to talk with her regarding the vaccines that were due to be given.Pt calmed down,was cooperative with staff and accepted the vaccines ,dressing change and had the IJ removed.Pt was remorseful and stated that it was out of frustration of being away from home and memories of son that drove her to behaving the way she did.Pt apologised to staff and even gave a angelica to contract technical writer.Pt left at 1930 and accompanied by staff who helped her to family car.`
== END 2021-09-26 19:32 | disposition home or self-care (01) | DRG 231 ==
LOC: ER 22:37 → ED HOLD 09-18 10:04 → PCU 3S 09-18 16:10 → ICU 2S 09-20 15:02 → MED 3N 09-23 17:57 → SUR 3N 09-25 13:25
PROVIDERS: ADMIT Internal Medicine Critical Care Medicine; ATTEND Internal Medicine Critical Care Medicine
PROC: B4101ZZ Fluoroscopy of Abdominal Aorta using Low Osmolar Contrast (ICD-10-PCS; 2021-09-18)
PROC: B4141ZZ Fluoroscopy of Superior Mesenteric Artery using Low Osmolar Contrast (ICD-10-PCS; 2021-09-18)
PROC: B41J1ZZ Fluoroscopy of Other Lower Arteries using Low Osmolar Contrast (ICD-10-PCS; 2021-09-18)
PROC: BW211ZZ Computerized Tomography (CT Scan) of Abdomen and Pelvis using Low Osmolar Contrast (ICD-10-PCS; 2021-09-18)
PROC: BW211ZZ Computerized Tomography (CT Scan) of Abdomen and Pelvis using Low Osmolar Contrast (ICD-10-PCS; 2021-09-18)
PROC: XW023U6 Introduction of COVID-19 Vaccine into Muscle, Percutaneous Approach, New Technology Group 6 (ICD-10-PCS; 2021-09-19)
PROC: 30233N1 Transfusion of Nonautologous Red Blood Cells into Peripheral Vein, Percutaneous Approach (ICD-10-PCS; 2021-09-19)
PROC: 0DBM0ZZ Excision of Descending Colon, Open Approach (ICD-10-PCS; 2021-09-20)
PROC: 07TP0ZZ Resection of Spleen, Open Approach (ICD-10-PCS; 2021-09-20)
PROC: BW211ZZ Computerized Tomography (CT Scan) of Abdomen and Pelvis using Low Osmolar Contrast (ICD-10-PCS; 2021-09-20)
PROC: 0DBL0ZZ Excision of Transverse Colon, Open Approach (ICD-10-PCS; principal; 2021-09-20 12:52)
PROC: 30233R1 Transfusion of Nonautologous Platelets into Peripheral Vein, Percutaneous Approach (ICD-10-PCS; 2021-09-21)
PROC: 3E02340 Introduction of Influenza Vaccine into Muscle, Percutaneous Approach (ICD-10-PCS; 2021-09-24)
PROC: 3E0234Z Introduction of Serum, Toxoid and Vaccine into Muscle, Percutaneous Approach (ICD-10-PCS; 2021-09-24)
DX: S36.892A Contusion of other intra-abdominal organs, initial encounter (principal); J96.01 Acute respiratory failure with hypoxia; D62 Acute posthemorrhagic anemia; R58 Hemorrhage, not elsewhere classified; F15.10 Other stimulant abuse, uncomplicated; E87.6 Hypokalemia; W18.11XA Fall from or off toilet without subsequent striking against object, initial encounter; Z20.822 Contact with and (suspected) exposure to COVID-19; F17.210 Nicotine dependence, cigarettes, uncomplicated; Z90.49 Acquired absence of other specified parts of digestive tract; Z23 Encounter for immunization; Z88.8 Allergy status to other drugs, medicaments and biological substances; Z71.51 Drug abuse counseling and surveillance of drug abuser; Z79.899 Other long term (current) drug therapy; Y93.89 Activity, other specified; Y92.89 Other specified places as the place of occurrence of the external cause; Y99.8 Other external cause status; Z71.6 Tobacco abuse counseling
CPT/HCPCS: 0002A; 36245; 36415; 36430; 36600; 71045; 74176; 74177; 75726; 76937; 80047; 80048; 80053; 80076; 81001; 81025; 82803; 82948; 83690; 83735; 84100; 84132; 84484; 85007; 85008; 85018; 85025; 85027; 85610; 85730; 86885; 86900; 86901; 86920; 87070; 87081; 87635; 90648; 90732; 90734; 91300; 93005; 94002; 94003; 94640; 94760; 97161; 97530; 99291; 99292; A4618; A6213; A7000; C1758; C1769; C1894; C9113; C9803; G0378; J0360; J0694; J1100; J1170; J1644; J2212; J2250; J2270; J2405; J2543; J2704; J3010; J3475; J3480; J3490; J7030; J7120; P9016; P9035; P9045; Q9963; Q9967

== ENCOUNTER 2022-07-12 19:06 | Emergency (ER) | payer MEDICAID, OTHER ==
[~2022-07-12] VITALS: Ht 165.1 cm; Wt 50.0 kg
[~2022-07-12 19:06] MED LIST changes: -ACET1TAB12 PO; -CYCL-1 PO; +HYDR-3972 PO; +NO HOME MEDS
[2022-07-12 20:00] VITALS: BP 143/81
[2022-07-12] MEDS ORDERED: diazepam 5mg tablet PO ONE (21:05)
[2022-07-12 21:22] LABS: CLARITY,URINE SLIGHTLY CLOUDY (Clear); COLOR,URINE YELLOW (Yellow); GLUCOSE, URINE NEGATIVE (Neg); KETONES,URINE NEGATIVE (Neg); LEUKOCYTE ESTERASE ,URINE NEGATIVE (Neg); NITRITES, URINE NEGATIVE (Neg); OCCULT BLOOD,URINE TRACE-INTACT (Neg); PROTEIN,URINE 100 mg/dl (Neg); UROBILINOGEN,URINE 0.2 E.U/dL (0.2-1.0)
[2022-07-12 21:28] LABS: BACTERIA,URINE FEW /HPF (Neg); SQUAMOUS EPITHELIAL CELL,UR FEW /LPF (FEW); UA COLLECTION TYPE NON-SPECIFIED; WBC,URINE NONE SEEN /HPF (0-4)
[2022-07-12 21:51] LABS: URINE AMPHETAMINE SCREEN POSITIVE (Neg); URINE BARBITUATE SCREEN NEGATIVE (Neg); URINE BENZODIAZEPINES SCREEN NEGATIVE (Neg); URINE CANNABINOID SCREEN NEGATIVE (Neg); URINE COCAINE SCREEN NEGATIVE (Neg); URINE METHADONE SCREEN NEGATIVE (Neg); URINE OPIATE SCREEN NEGATIVE (Neg); URINE PHENCYCLIDINE SCREEN NEGATIVE (Neg)
[2022-07-12] MEDS ORDERED: ORPH100T2 PO (22:29)
[2022-07-12] MEDS ORDERED: acetaminophen 325mg tablet PO ONE (22:35)
== END 2022-07-12 22:51 | disposition home or self-care (01) ==
LOC: ER 20:53
DX: M54.9 Dorsalgia, unspecified (principal); M54.2 Cervicalgia; F12.10 Cannabis abuse, uncomplicated; Z79.899 Other long term (current) drug therapy; X58.XXXA Exposure to other specified factors, initial encounter; Y93.89 Activity, other specified; Y92.89 Other specified places as the place of occurrence of the external cause; Y99.8 Other external cause status
CPT/HCPCS: 80305; 81001; 99283

== ENCOUNTER 2024-03-07 07:16 | Emergency (ER) | payer MEDICAID ==
[~2024-03-07] VITALS: Ht 162.6 cm; Wt 51.4 kg
[~2024-03-07 07:16] MED LIST changes: +ORPH100T4 PO
[2024-03-07] MEDS ORDERED: CYCL5TAB PO (07:39)
[2024-03-07] MEDS ORDERED: CARV-50 PO (07:39)
[2024-03-07] MEDS ORDERED: SPIR25TA5 PO (07:39)
[2024-03-07] MEDS ORDERED: LOSA50TA64 PO (07:39)
[2024-03-07] MEDS ORDERED: FURO20TA4 PO (07:39)
[2024-03-07] MEDS ORDERED: CLIN-214 PO (07:56)
[2024-03-07] MEDS: clindamycin 150mg capsule PO ONE (07:57)
[2024-03-07 08:31] VITALS: BP 173/112; PULSE 88; RESP 15; TEMP 99; O2SAT 98
== END 2024-03-07 08:34 | disposition home or self-care (01) ==
LOC: ER 07:17
DX: S02.5XXA Fracture of tooth (traumatic), initial encounter for closed fracture (principal); K04.7 Periapical abscess without sinus; R22.0 Localized swelling, mass and lump, head; F15.90 Other stimulant use, unspecified, uncomplicated; Z88.8 Allergy status to other drugs, medicaments and biological substances; Z91.018 Allergy to other foods; Z79.899 Other long term (current) drug therapy; Z90.49 Acquired absence of other specified parts of digestive tract; Z98.890 Other specified postprocedural states; X58.XXXA Exposure to other specified factors, initial encounter; Y93.89 Activity, other specified; Y92.89 Other specified places as the place of occurrence of the external cause; Y99.8 Other external cause status
CPT/HCPCS: 99283

== ENCOUNTER 2024-10-13 17:40 | Emergency (ER) | payer MEDICAID ==
[~2024-10-13] VITALS: Ht 165.1 cm; Wt 54.2 kg
[~2024-10-13 17:40] MED LIST changes: +CARV-50 PO; +CLIN-214 PO; +CYCL-920 PO; +FURO20TA4 PO; -HYDR-3972 PO; +LOSA50TA64 PO; -ORPH100T4 PO; +SPIR25TA5 PO
[2024-10-13 17:47] VITALS: TEMP 98.4; O2SAT 99
[2024-10-13 18:06] LABS: BASOPHILS % (AUTO) 0.4 % (0-1); EOSINOPHILS # (AUTO) 0.1 X10'3 (0-0.9); HEMOGLOBIN 9.6 g/dl (12.0-16.0); LYMPHOCYTES # (AUTO) 1.7 X10'3 (1.1-4.8); LYMPHOCYTES % (AUTO) 21.5 % (21-51); MEAN CORPUSCULAR HEMOGLOBIN 31.7 PG (27.0-31.0); MEAN CORPUSCULAR HGB CONC 34.3 g/dL (33.0-36.5); MEAN CORPUSCULAR VOLUME 92.5 FL (78-98); MEAN PLATELET VOLUME 10.5 FL (7.4-10.4); MONOCYTES # (AUTO) 0.8 X10'3 (0-0.9); MONOCYTES % (AUTO) 9.8 % (2-12); NEUTROPHILS # (AUTO) 5.2 X10'3 (1.8-7.7); NEUTROPHILS % (AUTO) 67.3 % (42-75); PLATELET COUNT 140 X10'3 (140-440); RED BLOOD COUNT 3.03 X10'6 (4.20-5.60); RED CELL DISTRIBUTION WIDTH 13.6 % (11.5-14.5); WHITE BLOOD COUNT 7.7 X10'3 (4.5-11.0)
[2024-10-13 18:26] LABS: ALANINE AMINOTRANSFERASE 21 U/L (12-78); ALBUMIN 3.3 G/DL (3.4-5.0); ALBUMIN/GLOBULIN RATIO 0.8 (1.1-1.5); ALKALINE PHOSPHATASE 104 IU/L (46-116); ANION GAP 6 (8-16); ASPARTATE AMINO TRANSFERASE 25 U/L (10-37); BILIRUBIN,TOTAL 0.5 MG/DL (0.1-1.0); BLOOD UREA NITROGEN 25 MG/DL (7-18); BUN/CREATININE RATIO 22.1 (10.0-20.0); CALCIUM 8.9 MG/DL (8.5-10.1); CHLORIDE 104 MMOL/L (99-107); CREATININE 1.13 MG/DL (0.40-0.90); GLUCOSE 98 MG/DL (70-104); SODIUM 138 MMOL/L (135-145); TOTAL PROTEIN 7.5 G/DL (6.4-8.2); eCRCL 49 ML/MIN; eGFR 50 ML/MIN
[2024-10-13 18:32] LABS: PRO BRAIN NATRIURETIC PEPTIDE 1114 PG/ML (0-125)
[2024-10-13] MEDS ORDERED: iohexol 350MG/ML 100ml bottle IV ONE (18:36)
[2024-10-13] MEDS: morphine 4 MG/ML inj SYRINge IV ONE (19:55)
[2024-10-13] MEDS: ketorolac trometh 30MG/ML vial 30 MG/ML VIAL IV ONE (20:10)
[2024-10-13 20:40] VITALS: BP 153/99; PULSE 80; RESP 16
== END 2024-10-13 20:41 | disposition home or self-care (01) ==
LOC: ER 17:41
DX: S36.92XA Contusion of unspecified intra-abdominal organ, initial encounter (principal); D64.9 Anemia, unspecified; R10.33 Periumbilical pain; F15.90 Other stimulant use, unspecified, uncomplicated; Z88.5 Allergy status to narcotic agent; Z88.8 Allergy status to other drugs, medicaments and biological substances; Z90.49 Acquired absence of other specified parts of digestive tract; Z79.899 Other long term (current) drug therapy; Z95.5 Presence of coronary angioplasty implant and graft; X58.XXXA Exposure to other specified factors, initial encounter; Y93.89 Activity, other specified; Y92.89 Other specified places as the place of occurrence of the external cause; Y99.8 Other external cause status
CPT/HCPCS: 36415; 71045; 71275; 74174; 80053; 83880; 84484; 85025; 86885; 86900; 86901; 93005; 96374; 99285; J1885; Q9967

== ENCOUNTER 2025-05-12 14:52 | Emergency (ER) | payer MEDICAID ==
[~2025-05-12] VITALS: Ht 165.1 cm; Wt 52.4 kg
[2025-05-12 15:04] VITALS: TEMP 99.6
--- NOTE | 2025-05-12 15:11 | ELECTROCARDIOGRAPH REPORT ---
[facility] Test Date: 2025-05-12 Test Time: 14:57:10 Pat Name: LAURA BENSON Department: EMERGENCY ROOM Room: Gender: F Manager Pool: LOR : 1970 Requested By: DEPARTMENT EMERGENCY Order Number: [id number] Reading MD: Dr. Romaine Acuna Measurements Intervals [place] Rate: 95 P: 75 [place]: 184 QRS: -63 QRSD: 90 T: 76 QT: 387 QTc: 487 Interpretive Statements Sinus rhythm Biatrial enlargement Left anterior fascicular block Probable left ventricular hypertrophy Nonspecific T abnormalities, lateral leads ST elevation, consider inferior injury Borderline prolonged QT interval Electronically Signed On 05-12-2025 20:30:[address] Romaine Acuna Please click the below link to view image of tracing.
--- NOTE | 2025-05-12 15:16 | Physician Documentation ---
History of Present Illness ~ Chief Complaint: Chest Pain Stated Complaint: CP Time Seen by MD: 15:23 Primary Medical Doctor: ELISEO BEASLEY [facility] This is a 55-year-old female who presents with two days of substernal nonradiating chest pain, patient was seen at an urgent care formed in EKG and directed to the emergency department due to possible abnormal findings. Patient reports she has been out of her hypertensive medications for 2-3 months. Patient is not diabetic she does smoke half a pack a day from three pack a day and history of hypertension. Family history COPD. The pain is increased by cough and any chest movement. It is a steady ache and very focused. No radiation. Medication Reconciliation Allergies: Coded Allergies: divalproex sodium (Verified Allergy, Severe, HIVES, 05/12/25) morphine (Unverified Allergy, Mild, other, 05/12/25) Per pt "It really puts me out, makes me loopy, I won't take it." celecoxib (Unverified Allergy, Unknown, FLU LIKE SYMPTOMS, 05/12/25) gluten (Unverified Allergy, Unknown, INTOLERANT, 05/12/25) Scheduled Carvedilol (Carvedilol), 1 TAB PO BID, (Reported) Clindamycin HCl (Clindamycin HCl CAPSULE), 2 CAP PO TID Cyclobenzaprine HCl (Cyclobenzaprine HCl), 1 TAB PO BID, (Reported) Furosemide (Furosemide), 1 TAB PO BID, (Reported) Losartan Potassium (Losartan Potassium), 1 TAB PO DAILY, (Reported) Spironolactone (Spironolactone), 1 TAB PO DAILY, (Reported) Miscellaneous Medications Home Med List (No Home Medications), (Reported) Past Medical History Past Medical History: No Pertinent History Past Surgical History: cholecystectomy, other Alcohol Use: None Drug Use: methamphetamine Lives with: Family Lives In: Home Review of Systems ROS As stated above in the HPI, otherwise all systems are reviewed and negative. Physical Exam Vital Signs: Temperature: 99.6, Source: Temporal, Heart Rate: 100, Respiratory Rate: 18, BP: 180/105, Pulse Oximetry: 99, Weight: 52.400 Oxygen Flow Rate: 0 General Appearance V reviewed vital signs and low-grade fever otherwise unremarkable. Const: Not in acute cardiopulmonary distress Head: Atraumatic Eyes: Normal Conjunctiva ENT: Normal External Ears, Nose and Mouth moist mucous membranes Neck: Full range of motion. No meningismus Resp: Clear to auscultation bilaterally. Normal work of breathing Cardio: Regular rate and rhythm, no murmurs. Skin well perfused, heart rate 96 per minute Abd: Soft, non-tender, non-distended. Normal bowel sounds. No rebound or guarding Skin: No petechiae or rashes. Warm and dry Back: No midline or flank tenderness Ext: No cyanosis, or edema Neuro: Awake and alert Psych: Normal Mood and Affect Progress Results/Orders Results/Orders Vital Signs 05/12/25 05/12/25 15:04 15:30 Temp 99.6 Pulse 100 Resp 18 16 B/P (MAP) 180/105 Pulse Ox 99 O2 Flow Rate 0 Laboratory Tests Test 05/12/25 15:00 White Blood Count 7.6 Red Blood Count 4.30 Hemoglobin 13.5 Hematocrit 39.7 Mean Corpuscular Volume 92.5 Mean Corpuscular Hemoglobin 31.5 H Mean Corpuscular Hemoglobin Concent 34.0 Red Cell Distribution Width 13.1 Platelet Count 150 Mean Platelet Volume 10.6 H Neutrophils (%) (Auto) 58.1 Lymphocytes (%) (Auto) 26.5 Monocytes (%) (Auto) 11.2 Eosinophils (%) (Auto) 3.2 Basophils (%) (Auto) 1.0 Neutrophils # (Auto) 4.5 Lymphocytes # (Auto) 2.0 Monocytes # (Auto) 0.9 Eosinophils # (Auto) 0.2 Basophils # (Auto) 0.1 CBC Comment See note Platelet Estimate See comment Red Blood Cell Morphology Perf Poikilocytosis 2+ Basophilic Stippling Anisocytosis 2+ Sodium Level 143 Potassium Level 3.6 Chloride Level 103 Carbon Dioxide Level 33.1 H Anion Gap 7 L Blood Urea Nitrogen 26 H Creatinine 1.42 H Estimated GFR/1.73 m2 38 BUN/Creatinine Ratio 18.3 Glucose Level 143 H Calcium Level 9.6 Troponin I High Sensitivity 19 Pro-B-Type Natriuretic Peptide 1369 H Albumin 3.7 Chemistry Comments Medical Decision Making Findings MSE performed in triage and patient returned to ED lobby by nursing staff to await available ED room. EKG obtained which did not demonstrate acute STEMI, ACS protocol initiated, patient is hemodynamically stable. ER Course/Med. Decision Making REVIEW of RECORD(S): Previous medical records here and/or external medical records, such as that provided directly by the patient, by EMS and/or outside medical facilities, if available, were reviewed. COMORBIDITIES hypertension smoking questionable family history MDM During the physical examination, the findings suggestive of acute life- threatening condition such as JVD, tracheal deviation, acidotic breathing, noisy stridorous breath sounds, pulses paradoxus, muffled heart sounds, unequal breath sounds, abdominal rigidity and rebound tenderness, focal neurological deficits, cool clammy skin, severe hypotension, severe tachycardia or bradycardia are absent. Patient presenting for chest pain . Vital signs reviewed. Patient is hemodynamically stable and does not meet SIRS criteria. Patient appears nontoxic on exam. Physical examination is unremarkable. EKG nonischemic. Blood test results are also well within normal range and 1st troponin is 19. Chest x-ray unremarkable. TREATMENT/DISPOSITION: The patient's presentation is most consistent with nonspecific chest pain. Prior to discharge I independently reviewed the patients past medical history, clinical risk factors, comorbidities, and social determinants of health and diagnostic studies. The patient appears to be a safe discharge home with close outpatient PCP follow-up I had extensive discussion with patient regarding management, disposition and follow up. Potential symptom etiology was discussed, and shared decision making occurred. They will return immediately if symptoms worsen, do not improve, or they have any further concerns. Prior to discharge all questions were addressed. The patient is aware that the purpose of this visit was to screen for an acute medical emergency requiring emergent stabilization. Chronic and occult conditions, including malignancies, have not been ruled out. If patient is unable to arrange follow-up as stated in the discharge instructions and further discussed with the patient directly, or their symptoms worsen/become more concerning, they are to return to the ER for reassessment immediately. Prior to leaving the department, the patient has a plan for discharge, has decision making capacity, and acknowledges an understanding of the verbal and written discharge instructions. SOCIAL DETERMINANTS: Patient demonstrates no obvious challenges to following up as an outpatient although did consider whether patient had any barriers to access care including homelessness, Food insecurity, Mental health, Substance abuse, Disabilities, Limited access to medical care, Difficulty finding transport, Insurance issues, Refusal of care or testing due to cost concerns. MEDICAL SCREENING: I have discussed with the patient the non-definitive nature of the emergency screening exam, diagnosis and the possibility of a variety of conditions which may present in atypically benign fashion and stressed the imp ortance of close follow-up for definitive diagnosis and treatment. We discussed signs and symptoms that should be watched for which might indicate a more serious or new condition that would benefit from emergency reevaluation and the patient has verbalized understanding to this and my other detailed discharge instructions and promises compliance. I have referred him back to his primary physician of course for a more detailed evaluation and more definitive diagnoses. DISCLAIMER: Inadvertent spelling and grammatical errors are likely due to EMR/dictation software use and do not reflect on the overall quality of patient care. Note that the electronic time recorded on this note does not necessarily reflect the actual time of the patient encounter. Departure Disposition: HOME / SELF CARE / HOMELESS Condition: Stable Discharge Instructions: Nonspecific Chest Pain, Adult Additional Instructions: Thank you for coming to our Emergency Department today. Please ask your nurse or provider if you have questions about your care today and do not leave until all your questions have been answered. Please use any medications given as directed and follow-up with your doctor (or the doctor you were referred to) in the next 1-3 days. Your primary care doctor can help to coordinate outpatient specialty care and provide authorization for specialty referral as needed. If you do not have a primary care doctor you may follow up at a [facility]. You may also use motrin and tylenol as needed for fever and/or pain unless instructed otherwise by your provider or nurse. Indications for more urgent follow-up have been discussed, but you may return to the Emergency Department at ANY time for any worrisome or worsening symptoms. County Facilities: County Facilities: [facility] [place] Address:[address] [place] [address] [facility]: [place] Address:[facility] [place] [address] [facility]: [facility] Address:[address] [place] [address] [facility] Address:[address] [place] [address] Registration Billing Pharmacy Referrals [facility] Address:[address] [place] [address], [place] [address] Referrals: NO PRIMARY CARE PROVIDER (PCP) Prescriptions Tramadol Hcl (Tramadol Hcl) 50 Mg Tablet 50 MG PO Q6H PRN FOR PAIN PRN for moderate pain 4-6, #30 TAB TAKE 1 TABLET (50MG) BY MOUTH EVERY 6 HOURS NEEDED FOR PAIN. Prov: TRINI NGUYEN MD 05/12/25 Signature Scribe Signature: x Attestation: ELISEO Shahid May 12, 2025 15:16 TRINI NGUYEN MD May 12, 2025 17:22
--- NOTE | 2025-05-12 15:44 | RADIOLOGY REPORT ---
DI CHEST,SINGLE VIEW, HISTORY: CP COMPARISON: DI CHEST,SINGLE VIEW on DOS: 10/13/24, CHEST,SINGLE VIEW on DOS: 09/21/21, CHEST,SINGLE VIEW on DOS: 09/20/21 DI CHEST,SINGLE VIEW on DOS: 10/13/24, CHEST,SINGLE VIEW on DOS: 09/21/21, CHEST,SINGLE VIEW on DOS: 09/20/21 TECHNICAL DATA: 1 view of the chest was obtained. FINDINGS: Lines and tubes: None Cardiomediastinal silhouette: normal Pulmonary vasculature: normal Lung expansion: normal Lung airspace: normal Lung interstitium: normal Pleura: normal Pneumothorax: no Bones: Unremarkable Other: no IMPRESSION: No acute intrathoracic abnormality.
[2025-05-12 15:49] LABS: MEAN PLATELET VOLUME 10.6 FL (7.4-10.4); RED CELL DISTRIBUTION WIDTH 13.1 % (11.5-14.5)
[2025-05-12 16:04] LABS: CREATININE 1.42 MG/DL (0.40-0.90); PRO BRAIN NATRIURETIC PEPTIDE 1369 PG/ML (0-125); TOTAL CARBON DIOXIDE 33.1 MMOL/L (24-32); eCRCL 37 ML/MIN; eGFR 38 ML/MIN
[2025-05-12] MEDS ORDERED: TRAM50TA2 PO (17:24)
[2025-05-12 18:26] VITALS: BP 159/88; PULSE 84; RESP 16; O2SAT 97
== END 2025-05-12 18:28 | disposition home or self-care (01) ==
LOC: ER 14:52
DX: R07.89 Other chest pain (principal); R06.02 Shortness of breath; F15.90 Other stimulant use, unspecified, uncomplicated; Z88.5 Allergy status to narcotic agent; Z88.8 Allergy status to other drugs, medicaments and biological substances; Z90.49 Acquired absence of other specified parts of digestive tract
CPT/HCPCS: 36415; 71045; 80048; 83880; 84484; 85008; 85025; 93005; 99285

== ENCOUNTER 2025-07-19 21:26 | Emergency (ER) | payer MEDICAID ==
[~2025-07-19] VITALS: Ht 165.1 cm; Wt 53.2 kg
[~2025-07-19 21:26] MED LIST changes: -CARV-50 PO; +CARV6.253 PO; -CLIN-214 PO; -CYCL-920 PO; +MAGN200T5 PO; +MULT200T12 PO; -NO HOME MEDS; +PER5325T PO; -SPIR25TA5 PO
--- NOTE | 2025-07-19 21:37 | Physician Documentation ---
History of Present Illness Stated Complaint: POST OP COMPLICATIONS Time Seen by MD: 21:37 Primary Medical Doctor: ELISEO SALCIDO RAMOS HPI 55-year-old female returns to the ED after having a recentExploratory laparotomy. * Small bowel resection on 07/12 which is approximately seven days ago. She presents after having difficult bowel movements and not taken stool softeners with prescribed narcotics states that she coughed today and felt as though maybe one of her nani came loose. States that she has noticed some blood streaking in her stool. Also has a history of using fentanyl, methamphetamine and benzodiazepine Day of Onset: Jul 19, 2025 Medication Reconciliation Allergies: Coded Allergies: divalproex sodium (Verified Allergy, Severe, HIVES, 05/12/25) morphine (Unverified Allergy, Mild, other, 05/12/25) Per pt "It really puts me out, makes me loopy, I won't take it." celecoxib (Unverified Allergy, Unknown, FLU LIKE SYMPTOMS, 05/12/25) gluten (Unverified Allergy, Unknown, INTOLERANT, 05/12/25) Scheduled Carvedilol (Carvedilol), 1 TAB PO BID, (Reported) Furosemide (Furosemide), 1 TAB PO BID, (Reported) Losartan Potassium (Losartan Potassium), 1 TAB PO DAILY, (Reported) Magnesium (Magnesium Oxide), 1 TAB PO DAILY, (Reported) Multivit-Minerals/Folic Acid (Multivitamin Gummies), 1 TAB PO DAILY, (Reported) Scheduled PRN Oxycodone Hcl/Acetaminophen 5/325 MG* (Percocet 5/325 MG*), 1 TAB PO Q4H PRN for moderate or severe pain 4-10 Past Medical History Past Medical History: No Pertinent History Past Surgical History: cholecystectomy, other Patient History: FH: heart failure Alcohol Use: None Drug Use: methamphetamine Lives with: Family Lives In: Home Physical Exam Physical Exam General: Alert, no apparent distress. Cardiovascular: Regular rate and rhythm, no murmurs. Gastrointestinal: Soft, nontender, nondistended. Bowels sounds present. Neurologic: Oriented x4. Psychiatric: Normal mood and affect. Skin: Operative stapled suture appears to be intact without any dehiscence or drainage Medical Decision Making Additional information obtaine: old records, N/A Findings This patient presents with a moderately decreased hemoglobin from her discharge hemoglobin which was over 10 she is now down to eight two. Maintains that she is having dark tarry stools. Ordered a CT abdomen and pelvis with contrast. She remains hemodynamically stable. Patient did not have a bowel movement after receiving Relistor secondary to ongoing of prescribed narcotic use Differential Dx:Considerations: Aortic dissection, Appendicitis, Bowel obstruction, Constipation, Inflammatory BD Addendum Sign-out note I received sign-out on this patient, pending repeat H&H I reviewed her repeat hemoglobin, which did not decrease. Re-evaluation: The patient tells me that she feels great, and would like to go home. She denies any abdominal pain or other symptoms at this time. We did discuss reasons to return. She does have a follow up appointment tomorrow with the primary doctor. Rayshawn Domínguez MD Departure Impression: Primary Impression: Blood in stool Referrals: NO PRIMARY CARE PROVIDER (PCP) Signature Scribe Signature: h Attestation: Scribed for Zia Mack Warehouse Technician by Zia Turner NP . 07/19/25 21:44 ZIA MACK NP Jul 19, 2025 21:37 RAYSHAWN DOMÍNGUEZ MD Jul 20, 2025 02:06
[2025-07-19 21:54] LABS: MEAN PLATELET VOLUME 8.3 FL (7.4-10.4); RED CELL DISTRIBUTION WIDTH 14.5 % (11.5-14.5)
--- NOTE | 2025-07-19 22:05 | RADIOLOGY REPORT ---
Date: 07/19/2025 09:51 PM Examination: DI ABDOMEN,SINGLE VIEW(KUB) History: POST OP COMPARISON: CT CTA ABDOMEN PELVIS on DOS: 07/11/25, CT CT ABDOMEN PELVIS on DOS: 07/11/25 TECHNIQUE: Frontal views of the abdomen was obtained. FINDINGS: Nonspecific paucity of bowel gas. Limited evaluation of free air on this supine view. Midline skin nani. Surgical sutures mainly seen in the left hemiabdomen. IMPRESSION: Nonspecific paucity of bowel gas.
[2025-07-19 22:10] LABS: CREATININE 1.30 MG/DL (0.40-0.90); TOTAL CARBON DIOXIDE 25.0 MMOL/L (24-32); eCRCL 41 ML/MIN; eGFR 43 ML/MIN
[2025-07-19 22:12] VITALS: RESP 12
[2025-07-19] MEDS ORDERED: iohexol 300mg/ml 100ml inj. ONE (22:23)
[2025-07-19] MEDS: methylnaltrexone br 12mg/0.6ml inj***SubQ only SQ ONE (22:54)
--- NOTE | 2025-07-19 23:24 | RADIOLOGY REPORT ---
EXAM: CT CT ABDOMEN PELVIS W/ IV CONTRAST HISTORY: post operative compl gi bleed COMPARISON STUDY: CT CTA ABDOMEN PELVIS on DOS: 07/11/25, CT CT ABDOMEN PELVIS on DOS: 07/11/25, CT ABDOMEN PELVIS on DOS: 09/20/21, CT ABDOMEN PELVIS on DOS: 09/19/21, CT ABDOMEN PELVIS on DOS: 09/18/21 TECHNIQUE: A digital rigging loft mechanic image was obtained. During the uneventful, intravenous administration of contrast material, multislice data acquisition was obtained through the abdomen and pelvis. The data set was subsequently reconstructed into multiplanar reformats. RADIATION DOSE: CTDI vol 8.0 mGy. DLP 372.6 mGy.cm FINDINGS: Evaluation is degraded by motion artifact. Lungs: The lung bases are clear. Liver: Unremarkable. Spleen: Small splenule. Pancreas: Unremarkable. Gallbladder: Prior cholecystectomy. Adrenals: Unremarkable Kidneys: Unremarkable. Pelvic Viscera: Unremarkable. 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 Retroperitoneum: Unremarkable. Bowel: Postsurgical changes of the bowel. No evidence of bowel obstruction. Musculoskeletal: Unremarkable. Soft tissues: Sutures are present along the ventral abdominal wall midline. IMPRESSION: 1. No acute abdominopelvic abnormality. 2. Incidental findings as detailed.
[2025-07-19 23:51] LABS: MEAN PLATELET VOLUME 8.1 FL (7.4-10.4); RED CELL DISTRIBUTION WIDTH 14.0 % (11.5-14.5)
[2025-07-20 00:21] LABS: URINE AMPHETAMINE SCREEN POSITIVE (Neg); URINE BARBITUATE SCREEN NEGATIVE (Neg); URINE BENZODIAZEPINES SCREEN NEGATIVE (Neg); URINE CANNABINOID SCREEN NEGATIVE (Neg); URINE COCAINE SCREEN NEGATIVE (Neg); URINE METHADONE SCREEN NEGATIVE (Neg); URINE OPIATE SCREEN NEGATIVE (Neg); URINE PHENCYCLIDINE SCREEN NEGATIVE (Neg)
[2025-07-20 00:27] LABS: LEUKOCYTE ESTERASE ,URINE NEGATIVE (Neg); NITRITES, URINE NEGATIVE (Neg); OCCULT BLOOD,URINE TRACE-INTACT (Neg)
[2025-07-20 00:28] LABS: UA COLLECTION TYPE CLN CATCH MIDSTREAM
[2025-07-20 00:29] LABS: SQUAMOUS EPITHELIAL CELL,UR MODERATE /LPF (FEW)
[2025-07-20 00:31] LABS: URIC ACID CRYSTALS FEW /HPF (NEGATIVE)
[2025-07-20 00:33] LABS: YEAST FEW /HPF (NEGATIVE)
[2025-07-20 01:31] VITALS: BP 198/99; PULSE 114; O2SAT 98
== END 2025-07-20 01:33 | disposition home or self-care (01) ==
LOC: ER 21:27
DX: K92.1 Melena (principal); F15.90 Other stimulant use, unspecified, uncomplicated; Z90.49 Acquired absence of other specified parts of digestive tract; Z88.5 Allergy status to narcotic agent; Z88.8 Allergy status to other drugs, medicaments and biological substances; Z88.1 Allergy status to other antibiotic agents; Z79.899 Other long term (current) drug therapy
CPT/HCPCS: 36415; 74018; 74177; 80053; 80305; 81001; 85025; 85027; 96372; 99285; J2212; Q9967; 81003